=== PATIENT | female | born 1945 | race Caucasian/White ===

== ENCOUNTER → 2019-05-04 11:09 | Outpatient (CLI) | payer MEDICARE, OTHER, SELFPAY ==
--- NOTE | ~2019-05-04 | DEXA_ITS ---
Bone Density Report Name: Yessenia Chaidez Age: 73 Sex: Female Ethnicity: White Date of : 1945 Indication: osteopenia; height loss; Referring Provider: Nirmala Soto Study: Bone densitometry was performed. Exam Date: May 04, 2019 Accession number: [id number] Bone Density: Region BMD T-score Z-score Classification AP Spine (L1-L4) 0.759 -2.6 -0.4 Osteoporosis Femoral Neck (Left) 0.604 -2.2 -0.3 Osteopenia Total Hip (Left) 0.852 -0.7 0.8 Normal Femoral Neck (Right) 0.606 -2.2 -0.3 Osteopenia Total Hip (Right) 0.861 -0.7 0.9 Normal Total Hip Mean 0.857 -0.7 0.9 Normal World Health Organization criteria for BMD impression classify patients as: Normal (T-score at or above -1.0), Osteopenia (T-score between -1.0 and -2.5), or Osteoporosis (T-score at or below -2.5). 10-year Fracture Risk: FRAX not reported because: Some T-score for Spine Total or Hip Total or Femoral Neck at or below -2.5 Previous Exams: Region Exam Age BMD T-score BMD Change BMD Change Date g/cm2 vs Baseline vs Previous AP Spine(L1-L4) 05/04/2019 73 0.759 -2.6 -0.099 -0.099 12/23/2008 63 0.858 -1.7 Total Hip(Left) 05/04/2019 73 0.852 -0.7 -0.004 -0.004 12/23/2008 63 0.856 -0.7 Total Hip(Right) 05/04/2019 73 0.861 -0.7 -0.021 -0.021 12/23/2008 63 0.882 -0.5 *Denotes significance at 95% confidence level, LSC for AP Spine = 0.022 g/cm2, LSC for Total Hip = 0.027 g/cm2 Clinical Information Provided by Patient: Patient maximum height was 63 Menopause Age: 47 No regular weight bearing exercise Does not regularly consume dairy products Drinks caffeinated beverages Onset of menses at age 16 Number of children 4 Impression: The patient has osteoporosis, based on the Total Spine T-score. No significant bone loss was observed. Discussion: INCREASED RISK OF FRACTURE. BONE DENSITY IS UNDESIRABLY LOW AT ONE OR MORE SKELETAL SITES, CONSISTENT WITH POSTMENOPAUSAL OSTEOPOROSIS. This patient's lowest T-score meets the World Health Organization's (WHO) criteria for osteoporosis at one or more sites (T-score -2.5 or below). In untreated patients, the risk of osteoporotic fracture increases approximately two-fold for each 1.0 SD decrease in T-score. Low bone density is not the only risk factor for fracture; also consider factors such as patient's age, frailty or poor health, risk of falling, risk of injury, previous
== END ==
PROVIDERS: PCP Internal Medicine; Visit Provider Nurse Practitioner
DX: Z78.0 Asymptomatic menopausal state (principal); M81.0 Age-related osteoporosis without current pathological fracture; M85.852 Other specified disorders of bone density and structure, left thigh; M85.851 Other specified disorders of bone density and structure, right thigh
CPT/HCPCS: 77080

== ENCOUNTER 2021-01-01 12:40 | Outpatient (CLI) | payer MEDICARE, SELFPAY ==
--- NOTE | ~2021-01-01 | US_ITS ---
EXAMINATION: US abdomen limited EXAM DATE: 01/01/2021 13:10 INDICATION: R10.9 - Unspecified abdominal pain. TECHNIQUE: Multiple grayscale and Doppler images of the abdomen right upper quadrant were obtained (b y a technologist who performed the scan) and subsequently reviewed. Comparison is made to prior exami nation from 02/14/2015. FINDINGS: The pancreatic head and body are normal in appearance. The pancreatic tail is not visualized. Mildl y echogenic liver parenchyma, hepatic steatosis. There are no focal liver lesions identified. Ther e is no evidence of intrahepatic biliary duct dilation. Portal venous flow was seen in the hepatoped al, normal direction and has normal Doppler waveform. No right-sided hydronephrosis. Common bile duct measures 5 mm, which is normal. The gallbladder fossa is unremarkable. IMPRESSION: 1. Hepatic steatosis. Reviewed, dictated and finalized at location B. IMPRESSION: 1. Hepatic steatosis.
== END 2021-01-01 12:41 | disposition home or self-care (01) ==
LOC: ANHIMG 12:44
PROVIDERS: PCP Internal Medicine; Visit Provider Nurse Practitioner
DX: R10.9 Unspecified abdominal pain (principal); K76.0 Fatty (change of) liver, not elsewhere classified
CPT/HCPCS: 76705

== ENCOUNTER 2021-05-27 13:56 | Outpatient (CLI) | payer MEDICARE, SELFPAY ==
--- NOTE | ~2021-05-27 | DEXA_ITS ---
Bone Density Report Name: OSVALDO ARROYO Age: 75 Sex: Female Ethnicity: White Date of : 1945 Indication: osteopenia; height loss; Referring Provider: Nirmala Soto Study: Bone densitometry was performed. Exam Date: May 27, 2021 Accession number: [id number] Bone Density: Region BMD T-score Z-score Classification AP Spine (L1-L4) 0.787 -2.4 -0.1 Osteopenia Femoral Neck (Left) 0.609 -2.2 -0.2 Osteopenia Total Hip (Left) 0.870 -0.6 1.1 Normal Total Hip Bilateral Avg 0.857 -0.7 1.0 Normal Femoral Neck (Right) 0.601 -2.2 -0.2 Osteopenia Total Hip (Right) 0.843 -0.8 0.9 Normal World Health Organization criteria for BMD impression classify patients as: Normal (T-score at or above -1.0), Osteopenia (T-score between -1.0 and -2.5), or Osteoporosis (T-score at or below -2.5). 10-year Fracture Risk(1): Major Osteoporotic Fracture 12% Hip Fracture 2.8% Reported Risk Factors: [place] (), Neck BMD=0.601, BMI=37.2 (1) FRAX(R) Version 3.08. Fracture probability calculated for an untreated patient. Fracture probability may be lower if the patient has received treatment. Previous Exams: Region Exam Age BMD T-score BMD Change BMD Change Date g/cm2 vs Baseline vs Previous AP Spine(L1-L4) 05/27/2021 75 0.787 -2.4 -0.156(-16.5%) -0.055(-6.5%)# 06/26/2013 67 0.841 -1.9 -0.101(-10.7%) -0.101(-10.7%) 12/10/2004 58 0.943 -0.9 Total Hip(Left) 05/27/2021 75 0.870 -0.6 0.027(3.2%)# -0.013(-1.5%)# 06/26/2013 67 0.883 -0.5 0.040(4.8%)# 0.040(4.8%)# 12/10/2004 58 0.843 -0.8 Total Hip(Right) 05/27/2021 75 0.843 -0.8 -0.010(-1.2%)# -0.029(-3.3%)# 06/26/2013 67 0.872 -0.6 0.019(2.3%)# 0.019(2.3%)# 12/10/2004 58 0.853 -0.7 *Denotes significance at 95% confidence level, LSC for AP Spine = 0.022 g/cm2, LSC for Total Hip = 0.027 g/cm2 Clinical Information Provided by Patient: Has used the following medications: Vitamin D, Calcium Patient maximum height was 63 Menopause Age: 47 No regular weight bearing exercise Onset of menses at age 18 Number of children 4 Impression: The patient has low bone mass, based on the Total Spine T-score. The patient has an estimated ten-year risk of hip fracture of 2.8% and an estimated ten-year risk of major fracture of 12%, based on the WHO FRAX algorithm. No significant bone loss was observed. Discussion: BONE DENSITY IS LOW AT ONE OR MORE SKELETAL SITES. Th
== END 2021-05-27 13:57 | disposition home or self-care (01) ==
LOC: ANHIMG 13:58
PROVIDERS: PCP Internal Medicine; Visit Provider Nurse Practitioner
DX: Z78.0 Asymptomatic menopausal state (principal); M85.88 Other specified disorders of bone density and structure, other site; M85.851 Other specified disorders of bone density and structure, right thigh; M85.852 Other specified disorders of bone density and structure, left thigh
CPT/HCPCS: 77080

== ENCOUNTER → 2021-11-24 14:49 | Outpatient (CLI) | payer MEDICARE, SELFPAY ==
--- NOTE | ~2021-11-24 | XR_ITS ---
Corrected Report Charges moved to correct acct [id number] 11/27/2021 [facility] This report was recreated on 11/27/2021. Original report was signed by Bobby Hanks M.D. on 11/24/2021 14:07 CDT. XR UGIAC w barium swallow DATE: 11/24/2021 13:12 INDICATION: Epigastric abdominal pain, nausea TECHNIQUE: Air-contrast upper gastrointestinal series 1 minute fluoroscopy time 52.365 DAP 196 images COMPARISON: None FINDINGS: There is normal deglutition and esophageal peristalsis. No stricture, mucosal fold thickening, erosion or ulceration or intraluminal mass lesion of the esophagus is detected. There is a small sliding hiatal hernia. There is spontaneous gastroesophageal reflux into the upper thoracic region. There are 2 contiguous ulcers with surrounding edema and radiating mucosal folds at the apex of the duodenal bulb. There is a very small diverticulum of the proximal second part of the duodenum. Surgical clips at the gallbladder fossa consistent with prior cholecystectomy. IMPRESSION: Small apical duodenal ulcers Small sliding hiatal hernia with spontaneous gastroesophageal reflux into the upper thorax Reviewed, dictated and finalized at Location A. Reviewed, dictated and finalized at location B. JASPER
== END ==
PROVIDERS: PCP Internal Medicine; Visit Provider Internal Medicine
DX: R11.0 Nausea (principal); R10.13 Epigastric pain; K44.9 Diaphragmatic hernia without obstruction or gangrene
CPT/HCPCS: 74246

== ENCOUNTER 2022-02-04 11:51 | Day surgery (SDC) | payer MEDICARE, SELFPAY ==
[2022-01-21 13:47] VITALS: BMI 34.3
--- NOTE | 2022-01-21 14:09 | PC.NURSE ---
PT STATES SHE IS NOT DIABETIC, SHE TAKES OZEMPIC FOR WEIGHT LOSS
[2022-02-04 12:15] VITALS: BP 125/82; PULSE 84; RESP 16; TEMP 36.8; O2SAT 98
[2022-02-04 12:22] VITALS: BMI 33.5
[2022-02-04] MEDS: LACTATED RINGERS 1,000 ML 150 ML IV CONT (12:53)
--- NOTE | 2022-02-04 13:18 | PM.HPGS ---
History of Present Illness History of Present Illness Consent: Risks, benefits, and alternatives have been discussed and questions answered. Patient agrees to proceed with procedure. Chief complaint: Nausea, Hiatal Hernia and Gerd Narrative: Yessenia Chaidez is a 76 year old female Presents for EGD. Patient has a history of substernal burning over the last year associated with nausea. Patient initially treated with Nexium 20mg p.o. daily. Her symptoms have persisted for this reason an upper GI was performed which revealed duodenal edema suggestive of several contiguous duodenal ulcers and a sliding hiatal hernia. In November patient's Nexium was increased to40mg p.o. b.i.d.. Over last 2 months however her substernal burning and nausea has persisted. Patient presents today for EGD to assess more thoroughly. Patient denies any weight loss or bleeding. Family history is noncontributory. Review of Systems Review of Systems: Review of systems noncontributory. COUNTS INCLUDE 234 BEDS AT THE [facility] Past Medical History Medical History (Updated 02/04/22 @ 13:20 by Diaz Howard MD) Weight gain Family History Family History Father Hypertension Family history of coronary artery disease Mother Hypertension Family history of coronary artery disease Family history of Alzheimer's disease Sibling Hypertension Family history of diabetes mellitus in first degree relative Patient's sister is Acute myocardial infarction Family history of cardiovascular disease Family history of heart disease in male family member before age 55 Social History Social History (Updated 01/13/22 @ 13:54 by Kamryn Barahona CMA) Smoking packs per day: 2 Smoking cigarettes per day: 40.0 Years smoked: 15 Smoking pack-years: 30.00 Smoking status: Former smoker Tobacco type: cigarettes Second hand tobacco smoke exposure: No Smoking end date: 03/07/93 Alcohol intake: current Drinks per week: 3 Alcohol use details: 3 MARGARITAS A WEEK Substance use: never Substance use type: does not use Lack of Transportation: No Lack of Food: Never True Current Housing: I Have Housing Concerned About Future Housing: No Difficulty Paying Gas/Electric Bills: No Difficulty Paying for Meds: No Currently Unemployed: No Education: High School Diploma/GED Difficulty w/ Childcare or Family Care: No Living arrangements: with family Spiritual care concerns: No Meds Home Medications and Allergies Home Medications Medication Instructions Recorded Confirmed Type melatonin 3 mg capsule 3 mg PO QHS 10/24/20 02/04/22 History lisinopril 10 mg tablet See Rx Instructions .Route 08/07/21 02/04/22 Rx .COMPLEX #90 tabs verapamil 240 mg tablet,extended See Rx Instructions .Route 09/11/21 01/21/22 Rx release .COMPLEX #90 ea terbinafine HCl 250 mg tablet 250 mg PO DAILY #30 tabs 11/12/21 02/04/22 Rx esomeprazole magnesium 40 mg See Rx Instructions .Route 11/26/21 02/04/22 Rx capsule,delayed release .COMPLEX #90 ea alprazolam 0.5 mg tablet 0.5 mg PO DAILY #30 tabs 12/15/21 02/04/22 Rx duloxetine 60 mg capsule,delayed See Rx Instructions .Route 12/22/21 02/04/22 Rx release .COMPLEX #90 ea rosuvastatin 40 mg tablet See Rx Instructions .Route 12/22/21 02/04/22 Rx .COMPLEX #90 ea tramadol 50 mg tablet 50 mg PO Q8H PRN pain #90 tabs 12/22/21 01/21/22 Rx semaglutide 1 mg/dose (4 mg/3 mL) 1 mg (0.75 mL) subcut WEEKLY #3 mL 01/13/22 02/04/22 Rx subcutaneous pen injector Allergies Allergy/AdvReac Type Severity Reaction Status Date / Time ciprofloxacin Allergy Mild pt does Verified 02/04/22 12:17 not remember codeine Allergy Mild Rash Verified 02/04/22 12:17 inositol Allergy Mild Rash Verified 02/04/22 12:17 niacin Allergy Mild Rash Verified 02/04/22 12:17 niacinamide Allergy Mild Rash Verified 02/04/22 12:17 Penicillins Allergy Mild Itching Verified
--- NOTE | 2022-02-04 13:38 | WPDANESEPPF ---
Anes - Initial Pre Proc Eval Procedure: Operation Date: 02/04/22 13:30 Proposed Procedures p Esophagogastroduodenoscopy - Diaz Howard MD Date/Time: 02/04/22 13:38 Surgeon: Diaz Howard MD Pre Op Diagnosis: Nausea, Hiatal Hernia and Gerd Patient Data Age: 76 Gender: F Height: 1.6 m Weight: 86 kg Last Vital Signs Temp 36.8 C 02/04/22 12:15 Pulse 84 02/04/22 12:15 Resp 16 02/04/22 12:15 BP 125/82 02/04/22 12:15 Pulse Ox 98 02/04/22 12:15 O2 Del Method Room Air 02/04/22 12:15 Allergies Allergy/AdvReac Type Severity Reaction Status Date / Time ciprofloxacin Allergy Mild pt does Verified 02/04/22 12:17 not remember codeine Allergy Mild Rash Verified 02/04/22 12:17 inositol Allergy Mild Rash Verified 02/04/22 12:17 niacin Allergy Mild Rash Verified 02/04/22 12:17 niacinamide Allergy Mild Rash Verified 02/04/22 12:17 Penicillins Allergy Mild Itching Verified 02/04/22 12:17 Sulfa (Sulfonamide Allergy Mild pt does Verified 02/04/22 12:17 Antibiotics) not remember Home Medications Medication Instructions Recorded Confirmed Type melatonin 3 mg capsule 3 mg PO QHS 10/24/20 02/04/22 History lisinopril 10 mg tablet See Rx Instructions .Route 08/07/21 02/04/22 Rx .COMPLEX #90 tabs verapamil 240 mg tablet,extended See Rx Instructions .Route 09/11/21 01/21/22 Rx release .COMPLEX #90 ea terbinafine HCl 250 mg tablet 250 mg PO DAILY #30 tabs 11/12/21 02/04/22 Rx esomeprazole magnesium 40 mg See Rx Instructions .Route 11/26/21 02/04/22 Rx capsule,delayed release .COMPLEX #90 ea alprazolam 0.5 mg tablet 0.5 mg PO DAILY #30 tabs 12/15/21 02/04/22 Rx duloxetine 60 mg capsule,delayed See Rx Instructions .Route 12/22/21 02/04/22 Rx release .COMPLEX #90 ea rosuvastatin 40 mg tablet See Rx Instructions .Route 12/22/21 02/04/22 Rx .COMPLEX #90 ea tramadol 50 mg tablet 50 mg PO Q8H PRN pain #90 tabs 12/22/21 01/21/22 Rx semaglutide 1 mg/dose (4 mg/3 mL) 1 mg (0.75 mL) subcut WEEKLY #3 mL 01/13/22 02/04/22 Rx subcutaneous pen injector Patient hx anesthesia problems: none Family hx anesthesia problems: none Results Review: All pre-operative results and documents have been reviewed as part of the pre-operative evaluation. [facility] Past Medical History Medical History Anxiety Chronic GERD Essential (primary) hypertension Major depressive disorder, recurrent episode, unspecified Mixed hyperlipidemia Weight gain Family History Family History Father Hypertension Family history of coronary artery disease Mother Hypertension Family history of coronary artery disease Family history of Alzheimer's disease Sibling Hypertension Family history of diabetes mellitus in first degree relative Patient's sister is Acute myocardial infarction Family history of cardiovascular disease Family history of heart disease in male family member before age 55 Social History Social History Smoking packs per day: 2 Smoking cigarettes per day: 40.0 Years smoked: 15 Smoking pack-years: 30.00 Smoking status: Former smoker Tobacco type: cigarettes Second hand tobacco smoke exposure: No Smoking end date: 03/07/93 Alcohol intake: current Drinks per week: 3 Alcohol use details: 3 MARGARITAS A WEEK Substance use: never Substance use type: does not use Lack of Transportation: No Lack of Food: Never True Current Housing: I Have Housing Concerned About Future Housing: No Difficulty Paying Gas/Electric Bills: No Difficulty Paying for Meds: No Currently Unemployed: No Education: High School Diploma/GED Difficulty w/ Childcare or Family Care: No Living arrangements: with family Spiritual care concerns: No Anes - Eval Final PreProcedure Day of P
[2022-02-04 14:06] VITALS: BP 143/80; PULSE 102; RESP 16; O2SAT 93
[2022-02-04 14:16] VITALS: BP 142/75; PULSE 96; RESP 16; O2SAT 94
[2022-02-04 14:26] VITALS: BP 138/80; PULSE 84; RESP 16; O2SAT 97
--- NOTE | 2022-02-04 14:26 | WPDANESPN ---
Anes - Prog Note Post-Op Date/Time: 02/04/22 14:26 Cardiovascular status: normal Respiratory status: normal Airway patency: baseline Mental status: baseline Post-Op hydration status: normal Vital Signs: Last Vital Signs Temp 36.8 C 02/04/22 12:15 Pulse 96 02/04/22 14:16 Resp 16 02/04/22 14:16 BP 142/75 H 02/04/22 14:16 Pulse Ox 94 02/04/22 14:16 O2 Del Method Room Air 02/04/22 14:16 Pain Score (VAS): 0 I/O: Intake & Output 02/03/22 02/04/22 02/04/22 23:59 07:59 15:59 Intake Total 400 Balance 400 Patient Feedback: Patient satisfied with anesthetic care.
--- NOTE | 2022-02-04 14:27 | SUR.PHASEII ---
DR PINA SPEAKING WITH PT AND FAMILY MEMBER JAVIER, IN [place].
--- NOTE | 2022-02-04 15:05 | SUR.PHASEII ---
1445; REVIEWED DISCHARGE INSTRUCTIONS WITH PT AND FAMILY. CALLED [facility] [place] TO CONFIRM NEW PRESCRIPTION OF REGLAN FROM DR PINA. IT IS READY FOR EXECUTIVE TALENT ACQUISITION CONSULTANT.
== END 2022-02-04 15:00 | disposition home or self-care (01) ==
PROVIDERS: PCP Internal Medicine; Visit Provider Internal Medicine Gastroenterology
PROC: 0DJ08ZZ Inspection of Upper Intestinal Tract, Via Natural or Artificial Opening Endoscopic (ICD-10-PCS; CPT 43235; principal; 2022-02-04 13:30)
DX: R11.0 Nausea (principal)
CPT/HCPCS: 43235

== ENCOUNTER 2022-02-23 09:11 | Outpatient (CLI) | payer MEDICARE, SELFPAY ==
--- NOTE | ~2022-02-23 | NM_ITS ---
EXAM: NM gastric emptying study DATE: 02/23/2022 14:21 INDICATION: Gastric basilar on endoscopy. TECHNIQUE: A gastric emptying study was performed using the methodology of Abimbola CASTELLON, et al. J Nucl Med 2007; 48:568-572. The patient was given a meal consisting of 2 scrambled eggs labeled with 1.021 mCi Tc-99m sulfur colloid, 2 slices of toast, two packages of jam, and approximately 120 mL of water . Simultaneous anterior and posterior 1-min images of the abdomen were obtained with the patient supi ne at multiple time points over a total period of 4 hours. The geometric mean of anterior and posteri or views was determined, and the percentage retention was calculated for each time point. COMPARISON: None. FINDINGS: Gastric retention of the radiotracer-labeled meal was 58%, 38%, and 17% at the 1-hour, 2-hour, and 4- hour time points, respectively. With this technique, apparent rapid gastric emptying is suggested by <30% gastric retention at 1 hour. Delayed gastric emptying is defined by gastric retention of >90% at 1 hour, >60% retention at 2 hours, or >10% retention at 4 hours. IMPRESSION: 1. Delayed gastric emptying. Reviewed, dictated and finalized at location L. TOR TECHNICIAN
== END 2022-02-23 09:12 | disposition home or self-care (01) ==
PROVIDERS: PCP Internal Medicine; Visit Provider Internal Medicine Gastroenterology
DX: T18.9XXA Foreign body of alimentary tract, part unspecified, initial encounter (principal); K30 Functional dyspepsia
CPT/HCPCS: 78264; A9541

== ENCOUNTER 2022-04-14 12:35 | Outpatient (CLI) | payer MEDICARE, SELFPAY ==
[2022-04-14 19:40] LABS: Kit Draw Collected
== END 2022-04-14 12:36 | disposition home or self-care (01) ==
LOC: ANHGOSHLAB 12:36
PROVIDERS: PCP Family Medicine; Visit Provider Family Medicine
DX: E78.5 Hyperlipidemia, unspecified (principal); R73.03 Prediabetes; E66.9 Obesity, unspecified
CPT/HCPCS: 36415

== ENCOUNTER 2022-11-15 12:44 | Outpatient (CLI) | payer MEDICARE, SELFPAY ==
[2022-11-15 19:35] LABS: Alanine Aminotransferase 11 U/L (6-35); Albumin Level 3.7 g/dL (3.5-5.1); Alkaline Phosphatase 82 U/L (38-126); Anion Gap 7 mmol/L (8-16); Aspartate Amino Transferase 25 U/L (14-36); Bilirubin,Total 0.5 mg/dL (0.2-1.3); Blood Urea Nitrogen 15 mg/dL (7-17); Carbon Dioxide 27 mmol/L (22-30); Chloride 103 mmol/L (98-107); Cholesterol 154 mg/dL (0-200); Estimated Glomerular Filt Rate > 60; Glucose 86 mg/dL (65-110); HDL Direct 43 mg/dL; Potassium 4.4 mmol/L (3.4-5.0); Sodium 137 mmol/L (137-145); Triglycerides 151 mg/dL (<150)
[2022-11-15 19:46] LABS: LDL Cholesterol Direct 77 mg/dL
[2022-11-15 20:35] LABS: Hematocrit 44.8 % (37.0-47.0); Hemoglobin 14.1 g/dL (12.0-15.0); Mean Corpuscular HGB Conc 31.5 g/dl (32-36); Mean Corpuscular Hemoglobin 29.4 pg (26-34); Mean Corpuscular Volume 93.3 fl (80-100); Mean Platelet Volume 10.6 fl (7.4-10.4); Platelet Count Result 260 k/mm3 (150-375); Red Cell Distribution Width 11.9 % (11.5-14.5)
[2022-11-15 20:36] LABS: Hemoglobin A1C 5.4 % (<5.7)
== END 2022-11-15 12:45 | disposition home or self-care (01) ==
LOC: ANHGOSHLAB 12:45
PROVIDERS: PCP Family Medicine; Visit Provider Family Medicine
DX: E78.5 Hyperlipidemia, unspecified (principal); R73.03 Prediabetes; E66.9 Obesity, unspecified; I10 Essential (primary) hypertension
CPT/HCPCS: 36415; 80053; 80061; 83036; 84443; 85027

== ENCOUNTER 2023-02-09 12:44 | Outpatient (CLI) | payer MEDICARE, SELFPAY ==
--- NOTE | ~2023-02-09 | US_ITS ---
US abdomen complete EXAMINATION: US Abdomen Complete INDICATION: Bloating. PROCEDURE: Realtime High Resolution abdomen ultrasound. COMPARISON: No prior studies for comparison FINDINGS: Gallbladder is surgically absent. Common bile duct measures 4.5 mm. Liver echotexture is increased, consistent with fatty infiltration.. Pancreas within normal limits. Pancreatic tail is obscured by bowel gas. Spleen is unremarkeable. Renal echotexture is within norm al limits bilaterally without hydronephrosis, contour deforming mass or renal stone. Right kidney sophie sures 9.3 cm. Left kidney measures 9.1 cm. There is a small hyperechoic mass in the right kidney justice uring 1.6 x 0.9 x 0.8 cm, consistent with benign angiomyolipoma. Visualized aspects of the aorta and IVC are within normal limits. Portal vein is patent. No sonograph ic Herbert's sign indicated by the technologist. IMPRESSION: 1: Hyperechoic 1.6 cm right renal mass, consistent with benign angiomyolipoma. Reviewed, dictated and finalized at location L. F WRITER
== END 2023-02-09 12:45 | disposition home or self-care (01) ==
LOC: CHSIMG 12:47
PROVIDERS: PCP Family Medicine; Visit Provider Nurse Practitioner Family
DX: R14.0 Abdominal distension (gaseous) (principal); N28.89 Other specified disorders of kidney and ureter
CPT/HCPCS: 76700

== ENCOUNTER 2023-03-21 11:19 | Outpatient (CLI) | payer MEDICARE, SELFPAY ==
[2023-03-21 19:17] LABS: Hematocrit 49.1 % (37.0-47.0); Hemoglobin 15.2 g/dL (12.0-15.0); Mean Corpuscular Hemoglobin 28.8 pg (26-34); Mean Platelet Volume 10.5 fl (7.4-10.4); Platelet Count Result 281 k/mm3 (150-375); Red Blood Count 5.28 M/mm3 (4.2-5.4); Red Cell Distribution Width 12.3 % (11.5-14.5); White Blood Count 9.7 K/mm3 (4.5-10.0)
[2023-03-21 19:18] LABS: Alanine Aminotransferase 14 U/L (6-35); Albumin Level 3.8 g/dL (3.5-5.1); Alkaline Phosphatase 109 U/L (38-126); Anion Gap 9 mmol/L (8-16); Aspartate Amino Transferase 29 U/L (14-36); Bilirubin,Total 0.8 mg/dL (0.2-1.3); Blood Urea Nitrogen 11 mg/dL (7-17); Calcium 9.2 mg/dL (8.4-10.2); Carbon Dioxide 26 mmol/L (22-30); Chloride 103 mmol/L (98-107); Cholesterol 185 mg/dL (0-200); Estimated Glomerular Filt Rate > 60; Glucose 95 mg/dL (65-110); HDL Direct 55 mg/dL; Potassium 4.1 mmol/L (3.4-5.0); Sodium 138 mmol/L (137-145); Triglycerides 209 mg/dL (<150)
[2023-03-21 19:29] LABS: LDL Cholesterol Direct 96 mg/dL
[2023-03-21 19:42] LABS: Hemoglobin A1C 5.9 % (<5.7)
== END 2023-03-21 11:20 | disposition home or self-care (01) ==
PROVIDERS: PCP Family Medicine; Visit Provider Family Medicine
DX: R73.03 Prediabetes (principal); E78.5 Hyperlipidemia, unspecified; E66.9 Obesity, unspecified; I10 Essential (primary) hypertension
CPT/HCPCS: 36415; 80053; 80061; 83036; 84443; 85027

== ENCOUNTER 2023-07-11 09:44 | Outpatient (CLI) | payer MEDICARE, SELFPAY ==
[2023-07-11 19:39] LABS: Hematocrit 48.2 % (37.0-47.0); Hemoglobin 14.8 g/dL (12.0-15.0); Mean Corpuscular HGB Conc 30.7 g/dl (32-36); Mean Corpuscular Hemoglobin 28.8 pg (26-34); Platelet Count Result 278 k/mm3 (150-375); Red Blood Count 5.13 M/mm3 (4.2-5.4); Red Cell Distribution Width 12.4 % (11.5-14.5); White Blood Count 8.7 K/mm3 (4.5-10.0)
[2023-07-11 19:52] LABS: Alanine Aminotransferase 15 U/L (6-35); Alkaline Phosphatase 100 U/L (38-126); Anion Gap 5 mmol/L (4-12); Aspartate Amino Transferase 31 U/L (14-36); Bilirubin,Total 0.6 mg/dL (0.2-1.3); Blood Urea Nitrogen 11 mg/dL (7-17); Calcium 9.2 mg/dL (8.4-10.2); Carbon Dioxide 29 mmol/L (22-30); Chloride 105 mmol/L (98-107); Cholesterol 171 mg/dL (0-200); Estimated Glomerular Filt Rate > 60; Glucose 92 mg/dL (65-110); HDL Direct 53 mg/dL; Potassium 4.4 mmol/L (3.4-5.0); Sodium 139 mmol/L (137-145); Triglycerides 214 mg/dL (<150)
[2023-07-11 20:02] LABS: LDL Cholesterol Direct 93 mg/dL
[2023-07-11 21:12] LABS: Hemoglobin A1C 5.6 % (<5.7)
== END 2023-07-11 09:45 | disposition home or self-care (01) ==
LOC: ANHGOSHLAB 09:45
PROVIDERS: PCP Family Medicine; Visit Provider Family Medicine
DX: E66.9 Obesity, unspecified (principal); E78.5 Hyperlipidemia, unspecified; I10 Essential (primary) hypertension; R73.03 Prediabetes; R94.5 Abnormal results of liver function studies
CPT/HCPCS: 36415; 80053; 80061; 83036; 84443; 85027

== ENCOUNTER 2023-11-09 13:07 | Outpatient (CLI) | payer MEDICARE, SELFPAY ==
[2023-11-09 19:29] LABS: Hematocrit 46.1 % (37.0-47.0); Hemoglobin 14.5 g/dL (12.0-15.0); Mean Corpuscular HGB Conc 31.5 g/dl (32-36); Mean Corpuscular Hemoglobin 29.1 pg (26-34); Mean Corpuscular Volume 92.4 fl (80-100); Platelet Count Result 271 k/mm3 (150-375); Red Blood Count 4.99 M/mm3 (4.2-5.4); Red Cell Distribution Width 12.6 % (11.5-14.5); White Blood Count 8.9 K/mm3 (4.5-10.0)
[2023-11-09 21:30] LABS: Alanine Aminotransferase 13 U/L (6-35); Albumin Level 3.9 g/dL (3.5-5.1); Alkaline Phosphatase 102 U/L (38-126); Anion Gap 7 mmol/L (4-12); Aspartate Amino Transferase 29 U/L (14-36); Bilirubin,Total 0.6 mg/dL (0.2-1.3); Blood Urea Nitrogen 13 mg/dL (7-17); Calcium 9.2 mg/dL (8.4-10.2); Carbon Dioxide 29 mmol/L (22-30); Chloride 103 mmol/L (98-107); Cholesterol 190 mg/dL (0-200); Estimated Glomerular Filt Rate > 60; Glucose 92 mg/dL (65-110); HDL Direct 54 mg/dL; Potassium 4.8 mmol/L (3.4-5.0); Sodium 139 mmol/L (137-145); Triglycerides 169 mg/dL (<150)
[2023-11-09 21:42] LABS: LDL Cholesterol Direct 107 mg/dL
[2023-11-09 22:21] LABS: Vitamin D 25 Hydroxy 17.2 ng/mL
[2023-11-09 22:24] LABS: Hemoglobin A1C 5.9 % (<5.7)
== END 2023-11-09 13:08 | disposition home or self-care (01) ==
LOC: ANHGOSHLAB 13:08
PROVIDERS: PCP Family Medicine; Visit Provider Nurse Practitioner
DX: E55.9 Vitamin D deficiency, unspecified (principal); Z00.00 Encounter for general adult medical examination without abnormal findings; E66.9 Obesity, unspecified; R73.03 Prediabetes
CPT/HCPCS: 36415; 80053; 80061; 82306; 83036; 84443; 85027

== ENCOUNTER 2024-02-23 10:40 | Outpatient (CLI) | payer MEDICARE, SELFPAY ==
[2024-02-23 13:09] LABS: Alanine Aminotransferase 11 U/L (6-35); Albumin Level 4.2 g/dL (3.5-5.1); Alkaline Phosphatase 118 U/L (38-126); Anion Gap 4 mmol/L (4-12); Aspartate Amino Transferase 29 U/L (14-36); Bilirubin,Total 0.8 mg/dL (0.2-1.3); Blood Urea Nitrogen 10 mg/dL (7-17); Calcium 9.5 mg/dL (8.4-10.2); Carbon Dioxide 29 mmol/L (22-30); Chloride 106 mmol/L (98-107); Cholesterol 184 mg/dL (0-200); Estimated Glomerular Filt Rate > 60; Glucose 102 mg/dL (65-110); HDL Direct 55 mg/dL; Potassium 4.9 mmol/L (3.4-5.0); Sodium 139 mmol/L (137-145); Triglycerides 183 mg/dL (<150)
[2024-02-23 13:20] LABS: LDL Cholesterol Direct 87 mg/dL
[2024-02-23 13:44] LABS: Hepatitis C Virus Antibody Negative (Negative)
== END 2024-02-23 10:41 | disposition home or self-care (01) ==
LOC: ANHGOSHLAB 10:41
PROVIDERS: PCP Nurse Practitioner; Visit Provider Nurse Practitioner
DX: R73.03 Prediabetes (principal); E78.5 Hyperlipidemia, unspecified; Z11.59 Encounter for screening for other viral diseases; M85.88 Other specified disorders of bone density and structure, other site; R91.8 Other nonspecific abnormal finding of lung field
CPT/HCPCS: 36415; 80053; 80061; 83036; 86803

== ENCOUNTER 2024-02-23 10:53 | Outpatient (CLI) | payer MEDICARE, SELFPAY ==
--- NOTE | ~2024-02-23 | CT_ITS ---
Non-contrast CT scan of the Abdomen and Pelvis Clinical indication: Back pain, other specified disorders kidney and ureter Technique: 2.5 mm axial scans were obtained through the abdomen and pelvis without intravenous or or al contrast. Dose reduction technique was used on this scan by utilizing automated exposure control a nd iterative reconstruction technique. The dose-length product (DLP) was 1019.98 mGy-cm. Findings: Images through the lung bases reveal 4 mm left lower lobe pulmonary nodule (axial image 7) . Probable minimal chronic interstitial changes of the lung bases.. There is no evidence of renal or ureteral calculi. The kidneys and the ureters are nondilated. 7 mm p robable hyperdense right renal cyst present. The liver, spleen, pancreas, and adrenals appear normal. Cholecystectomy clips are present. There are atherosclerotic calcifications of the aorta. . There is no evidence of bowel obstruction. Small fat-containing umbilical hernia noted. Images through the pelvis were performed. There is no evidence of ascites or lymphadenopathy. Urinary bladder unremarkable. No pelvic mass. Impression: 7 mm probable hyperdense right renal cyst. This could be further confirmed with pre and postcontrast MR as indicated. 4 mm left lower lobe pulmonary nodule. According to Fleischner Society criteria, for a low-risk patie nt, no further follow-up required. For a high-risk patient, consider 12 month follow-up CT. Reviewed, dictated and finalized at [facility]. L WORD PROCESSOR Impression: 7 mm probable hyperdense right renal cyst. This could be further confirmed with pre and postcontrast MR as indicated. 4 mm left lower lobe pulmonary nodule. According to Fleischner Society criteria , for a low-risk patient, no further follow-up required. For a high-risk patien t, consider 12 month follow-up CT.
== END 2024-02-23 10:54 | disposition home or self-care (01) ==
LOC: GOSHIMG 10:53
PROVIDERS: PCP Nurse Practitioner; Visit Provider Nurse Practitioner
DX: N28.89 Other specified disorders of kidney and ureter (principal)
CPT/HCPCS: 74176

== ENCOUNTER 2024-03-21 14:12 | Outpatient (CLI) | payer MEDICARE, SELFPAY ==
--- NOTE | ~2024-03-21 | XR_ITS ---
XR hip BI wo pelvis 03/21/2024 14:41 Indication: Bilateral hip pain Procedure: 2 views each hip Comparison: Findings: Mild bilateral osteoarthritis of the hips. No fracture, subluxation or dislocation. No soft tissue abnormality. No foreign bodies. Impression: 1: Mild osteoarthritis of the hips. Reviewed, dictated and finalized at location A. R SIGNAL PROCESSING ENGINEER Impression: 1: Mild osteoarthritis of the hips.
--- NOTE | ~2024-03-21 | XR_ITS ---
XR lumbar spine 2-3V 03/21/2024 14:41 Indication: Low back pain Procedure: 4 views lumbar spine Comparison: 06/10/2007 Findings: Mild dextrocurvature. Osteopenia. Vertebral body heights are maintained. There is disc narr owing at L5-S1 and to a lesser degree L4-5. There is facet hypertrophy at L4-5 and L5-S1. There are c holecystectomy clips. Pedicles intact. Impression: 1: Moderate lumbar spondylosis Reviewed, dictated and finalized at location A. UP OPERATOR Impression: 1: Moderate lumbar spondylosis
== END 2024-03-21 14:13 | disposition home or self-care (01) ==
LOC: GOSHIMG 14:14
PROVIDERS: PCP Nurse Practitioner; Visit Provider Nurse Practitioner
DX: M47.896 Other spondylosis, lumbar region (principal); M16.0 Bilateral primary osteoarthritis of hip
CPT/HCPCS: 72100; 73521

== ENCOUNTER 2024-06-20 00:28 | Emergency (ER) | payer MEDICARE, SELFPAY ==
--- NOTE | ~2024-06-20 | XR_ITS ---
Portable chest x-ray Comparison: 09/29/2006 Clinical History: Infection Findings: Lungs are clear, without focal consolidation or pleural effusion. Cardiomediastinal silho uette is stable. Bones and soft tissues are unremarkable. Impression: Clear lungs. Reviewed, dictated and finalized at location . Impression: Clear lungs.
--- NOTE | ~2024-06-20 | CT_ITS ---
Non-contrast Head CT History: Headache Technique: Axial non-contrast imaging of the brain was performed. Dose reduction technique was used on this scan by utilizing automated exposure control and iterative reconstruction technique. The dose -length product (DLP) was 605.33 mGy-cm. Findings: There is no evidence of intracranial hemorrhage, mass lesion, or acute infarct. Chronic la cunar infarct versus dilated perivascular space noted in the right basal ganglia region. The ventric les and subarachnoid spaces are normal in size. The calvarium appears normal. The visualized parana gin sinuses and mastoid air cells are clear. Impression: No acute abnormality seen. Chronic lacunar infarct versus dilated perivascular space in the right basal ganglia. Reviewed, dictated and finalized at location . Impression: No acute abnormality seen. Chronic lacunar infarct versus dilated perivascular space in the right basal ga nglia.
--- OUTSIDE RECORDS SUMMARY | 2024-06-20 00:30 | XMS_ITS | Clinical Summary ---
Author Organization [facility] Address [address] [place] [address] Care Team Providers Care Hot Bread Baker Name Role Phone Frantz Grissom MD Primary Care Provider [phone] Source Comments [facility] [employer],non-owned Affiliates and Associated Physician Practices is amultiple site organization consisting of ambulatory clinics and hospital sitesin [place], [place], [place] and [place]. This disclosure is being madepursuant to the Care Everywhere program and may not contain all information available regarding this patient. Last updated 17.[facility] [employer] Social History Tobacco Use Types Packs/Day Years Used Date Smoking Tobacco: Never Assessed Comments Unknown Sex and Gender Information Value Date Recorded Sex Assigned at Not on file Legal Sex Female 1:04 PM CDT Gender Identity Not on file Sexual Orientation Not on file Plan of Treatment Health Maintenance Due Date Last Done Comments BONE DENSITY TESTING 1945 HEPATITIS C SCREENING 12/12/1965 DTAP/TDAP/TD VACCINES (1 - Tdap) 12/16/1966 PNEUMOCOCCAL VACCINE 50+ (1 of 1 - PCV) 12/16/1997 ZOSTER VACCINE (1 of 2) 12/16/1997 Respiratory Syncytial Virus (RSV) Vaccine Pt: or over 60 yrs (1 - 1-dose 75+ series) 12/16/2022 COVID-19 VACCINE ( - 2023-2 5 season) 2023 DEPRESSION SCREENING 03/07/2024 MEDICARE AWV CALENDAR YEAR 2024 INFLUENZA VACCINE (Season Ended) 2024 HEPATITIS B VACCINE Aged Out No longe r eligible based on patient's age to complete this topic HIB VACCINE Aged Out No longer eligi ble based on patient's age to complete this topic HPV VACCINE Aged Out No longer eligi ble based on patient's age to complete this topic MENINGOCOCCAL (Group B) VACC INE SHARED DECISION-MAKING Aged Out No longer eligibl e based on patient's age to complete this topic MENINGOCOCCAL GROUPS A/C/Y/W VACCINE Aged Out No longer eligible b ased on patient's age to complete this topic Insurance MEDICARE MEDICARE MEDICARE UHC MANAGED MEDICARE ADV Care Teams Hot Bread Baker Relationship Specialty Start Date End Date Frantz Grissom MD [address] [place] [address] PCP - General 10/30/20
--- OUTSIDE RECORDS SUMMARY | 2024-06-20 00:30 | XMS_ITS | Encounter Summary ---
Author Organization [facility] Address [address] [place] [address] Care Team Providers Care Beading Installer Name Role Phone Frantz Grissom MD Primary Care Provider [phone] Encounter Details Date Type Department Care Team (Late st Contact Info) Description 10/31/2020 Lab Requisition [facility] DermPath Lab [address] [place] [id number] Pan Sabillon Jr., MD [address] [facility] [address] [place] [address] Social History Tobacco Use Types Packs/Day Years Used Date Smoking Tobacco: Never Assessed Comments Unknown Sex and Gender Information Value Date Recorded Sex Assigned at Not on file Legal Sex Female 1:04 PM CDT Gender Identity Not on file Sexual Orientation Not on file documented as of this encounter Plan of Treatment Not on file documented as of this encounter Procedures Procedure Name Priority Date/Time Associated Diagnosis Comments DERMATOPATHOLOGY Routine 10/29/2020 3:33 AM CDT documented in this encounter Results * DERMATOPATHOLOGY (10/29/2020 3:33 AM CDT) Case Report Dermatopathology Report Case: [id number] Authorizing Provider: Pan Sabillon Jr., MD Collected: 10/29/2020 03:33 AM Ordering Location: [facility] Derm[facility] Lab Received: 10/31/2020 05:59 AM Pathologist: Rosalinda Rodriguez MD Specimen: Skin, left lateral superior chest 2:51 PM CDT DERMATOPATHOLOGY LABORATORY Final Diagnosis Specimen A. SKIN, left lateral superior chest: BENIGN VERRUCOUS KERATOSIS, INFLAMED (L82.1) 2:51 PM CDT DERMATOPATHOLOGY LABORATORY Clinical History Inflamed seborrheic keratosis vs verruca vulgaris vs squamous cell carcinoma. . 1 2:51 PM CDT DERMATOPATHOLOGY LABORATORY Gross Description Specimen A: Received is one formalin filled container labeled with the patient's name and designated left lateral superior chest. The specimen consists of a shave biopsy measuring [id number]. Jar 0. 1 2:51 PM CDT DERMATOPATHOLOGY LABORATORY Microscopic Description Specimen A. SKIN, left lateral superior chest: Sections show hyperkeratosis, papillomatosis, hypergranulosis, and acanthosis. Inflammatory cells are present within the dermis. These histological findings can be seen in a verruca vulgaris or a seborrheic keratosis. 2:51 PM CDT DERMATOPATHOLOGY LABORATORY Disclaimer An external and internal positive and negative controls are appropriate for the histochemical, immunohistochemical and immunofluorescence stain(s) in this case (if any), except where stated explicitly. The performance characteristics of the stain(s) cited in this report were developed and its performance characteristic determined by the Dermatopathology Laboratory at [facility], directed by Dr. Marychuy Rodriguez. These tests need not be, and therefore are not, approved by the [place] Food and Drug Administration. The tests are used for clinical purposes. Billing Codes Specimen Charges Stain Charges 88496 1 1 2:51 PM CDT DERMATOPATHOLOGY LABORATORY Embedded Images 1 2:51 PM CDT DERMATOPATHOLOGY LABORATORY Pathology/Cytolo gy TISSUE SPECIMEN FROM SKIN / Unknown 10/29/2020 3:33 AM CDT 10/31/2020 5:59 AM CDT us Pan Sabillon Jr., MD LAB - PATHOLOGY/CYTOLOG Y ORDERABLES Final Result DERMATOPATHOLOGY LABORATORY [facility] - Department of Dermatology [address], [address] [phone] documented in this encounter Visit Diagnoses Not on filedocumented in this encounter Care Teams Beading Installer Relationship Specialty Start Date End Date Frantz Grissom MD [address] [facility] [address] [place] [address] PCP - General 10/30/20 documented as of this encounter
--- OUTSIDE RECORDS SUMMARY | 2024-06-20 00:30 | XMS_ITS | Clinical Summary ---
Author Organization [facility] Address [address], [address] [address] Phone Care Team Providers Care Application Chemist Name Role Phone Frantz Grissom MD Primary Care Provider [phone] Diaz Wen DO Unavailable [phone] Immunizations Immunization Administration Dates Next Due Covid-19, Mrna, Lnp-s, Pf, 30 Mcg/0.3 Ml Dose (P fizer) 05/29/2020,05/01/2020 Social History Tobacco Use Types Packs/Day Years Used Date Smoking Tobacco: Never Assessed Comments Unknown Sex and Gender Information Value Date Recorded Sex Assigned at Not on file Legal Sex Female 11:32 PM CDT Gender Identity Not on file Sexual Orientation Not on file Plan of Treatment Health Maintenance Due Date Last Done Comments DEXA Bone Density 1945 Hepatitis C Virus (HCV) Screening 1945 TdaP Immunization 1945 Colonoscopy 12/16/1992 Colorectal Cancer Screening 12/16/1992 Cologuard 12/16/1997 Immunochemical Fecal Occult Blood 12/16/1997 Zoster Immunization (1 of 2) 12/16/1997 Respiratory Syncytial Virus (RSV) Immunization (Adult) (1 - 1-dose 75+ series) 12/16/2022 Influenza Immunization (#1) 2023 092 03/2019, 03/21/2019, 11/17/2017, Additional history exists SARS-COV-2 Immunization ( season) 2023 01/22/2021, 05/29/2020, 05/01/2020 Pneumococcal Immunization (50+ years) Completed 04/04/2017, 03/16/2016 Pneumococcal Immunization Combined Discontinued 04/04/2017, 03/16/2016 Hepatitis B Immunization Aged Out No longer eligible based on patient's age to complete this topic Meningococcal Immunization (ACWY) Aged Out No longer eligible based on patient's age to complete this topic Rotavirus Immunization Aged Out No lo nger eligible based on patient's age to complete this topic Insurance Member Subscriber Plan / Payer (Ef fective 2012-Present) Name:Osvaldo Chaidez Member ID:[id number] Relation to Subscriber:Self Name:OSVALDO CHAIDEZ Subscriber ID:[id number] Payer ID:[id number] Group ID:Not on file Type:Not on file Address: [facility] [address] [facility] [employer] [facility] [place] [address] [facility]LY [facility] Care Teams Application Chemist Relationship Specialty Start Date End Date Frantz Grissom MD [address] [place] [address] PCP - General Internal Medicine 03/13/15 Diaz Wen DO [address] [place] [address] Gastroenterology 03/13/15
[2024-06-20 00:41] VITALS: BP 151/94; PULSE 101; RESP 18; TEMP 36.6; O2SAT 98
[2024-06-20 01:07] LABS: Basophils Percent Auto 0.2 % (0.2-1.2); Eosinophils Percent Auto 0.1 % (0-4.4); Hematocrit 54.3 % (37.0-47.0); Hemoglobin 17.2 g/dL (12.0-15.0); Immature Granulocyte Absolute 0.11 K/mm3 (0.00-0.031); Immature Granulocyte Percent A 0.6 % (0-0.5); Lymphocytes Absolute Auto 1.56 K/mm3 (0.9-3.2); Lymphocytes Percent Auto 8.4 % (18.3-44.2); Mean Corpuscular HGB Conc 31.7 g/dl (32-36); Mean Corpuscular Hemoglobin 28.8 pg (26-34); Mean Platelet Volume 9.1 fl (7.4-10.4); Monocytes Absolute Auto 1.2 K/mm3 (0.1-0.6); Monocytes Percent Auto 6.5 % (2.6-8.5); Neutrophils Absolute Auto 15.7 K/mm3 (1.3-6.7); Neutrophils Percent Auto 84.2 % (45.5-73.1); Platelet Count Result 281 k/mm3 (150-375); Red Blood Count 5.97 M/mm3 (4.2-5.4); Red Cell Distribution Width 12.9 % (11.5-14.5); White Blood Count 18.6 K/mm3 (4.5-10.0)
[2024-06-20] MEDS: ACETAMINOPHEN 500 MG TABLET 1000 MG PO (01:09)
[2024-06-20] MEDS: METOCLOPRAMIDE HCL INJ 10 MG/2 ML VIAL IV PUSH (01:09)
[2024-06-20] MEDS: diphenhydrAMINE HCl INJ 50 MG/ML VIAL 25 MG IV PUSH (01:09)
[2024-06-20] MEDS: SODIUM CHLORIDE 0.9% IV 1,000 ML 999 ML IV CONT (01:10)
[2024-06-20] MEDS: SODIUM CHLORIDE 0.9% IV 50 ML 999 ML (01:11)
--- OUTSIDE RECORDS SUMMARY | 2024-06-20 01:13 | XMS_ITS | Clinical Summary ---
Author Organization [facility] Address [address], [address] [address] Phone Care Team Providers Care Farm Agent Name Role Phone Frantz Grissom MD Primary Care Provider [phone] Diaz Wen DO Unavailable [phone] Immunizations Immunization Administration Dates Next Due [...] Payer (Ef fective 2012-Present) Name:Osvaldo Chaidez Member ID:[id number] Relation to Subscriber:Self Name:OSVALDO CHAIDEZ Subscriber ID:[id number] Payer ID:[id number] Group ID:Not on file Type:Not on file Address: [facility] [address] [facility] [employer] [facility] [address] [facility] Care Teams Farm Agent Relationship Specialty Start Date End Date Frantz Grissom MD [address] [place] [address] PCP - General Internal Medicine 03/13/15 Diaz Wen DO [address] [place] [address] Gastroenterology 03/13/15
--- OUTSIDE RECORDS SUMMARY | 2024-06-20 01:13 | XMS_ITS | Encounter Summary ---
Author Organization [facility] Address [address] [place] [address] Care Team Providers Care Wheel Alignment Mechanic Name Role Phone Frantz Grissom MD Primary Care Provider [phone] Encounter Details Date Type Department Care Team (Late st Contact Info) Description 10/31/2020 Lab Requisition [facility] DermPath Lab [address] [facility] [place] [phone] Pan Sabillon Jr., MD [address] [facility] [address] [place] [address] Social History Tobacco Use Types Packs/Day Years [...] AM CDT) Case Report Dermatopathology Report Case: [id number] Authorizing Provider: Pan Sabillon Jr., MD Collected: 10/29/2020 03:33 AM Ordering Location: [facility] DermPath Lab Received: 10/31/2020 05:59 AM Pathologist: [...] specimen consists of a shave biopsy measuring [id number]. Jar 0. 1 2:51 PM CDT DERMATOPATHOLOGY [...] characteristic determined by the Dermatopathology Laboratory at [facility], directed by Dr. Marychuy Rodriguez. These tests need not be, and therefore are not, approved by the [place] Food and Drug Administration. The tests are used for clinical purposes. Billing Codes Specimen Charges Stain Charges 60307 1 1 2:51 PM CDT DERMATOPATHOLOGY LABORATORY Embedded Images 1 2:51 PM CDT DERMATOPATHOLOGY LABORATORY Pathology/Cytolo gy TISSUE SPECIMEN FROM SKIN / Unknown 10/29/2020 3:33 AM CDT 10/31/2020 5:59 AM CDT us Pan Sabillon Jr., MD LAB - PATHOLOGY/CYTOLOG Y ORDERABLES Final Result DERMATOPATHOLOGY LABORATORY [facility] - Department of Dermatology [address], [address] [phone] documented in this encounter Visit Diagnoses Not on filedocumented in this encounter Care Teams Wheel Alignment Mechanic Relationship Specialty Start Date End Date Frantz Grissom MD [address] [facility] [address] [place] [address] PCP - General 10/30/20 documented as of this encounter
--- OUTSIDE RECORDS SUMMARY | 2024-06-20 01:13 | XMS_ITS | Clinical Summary ---
Author Organization [facility] Address [address] [place] [address] Care Team Providers Care Data Deliverables Manager Name Role Phone Frantz Grissom MD Primary Care Provider [phone] Source Comments [facility] slinkset,non-owned Affiliates and Associated Physician Practices is amultiple site organization consisting of ambulatory clinics and hospital sitesin [place], [place], [place] and [place]. This disclosure is being madepursuant to the Care Everywhere program and may not contain all information available regarding this patient. Last updated 17.[facility] slinkset Social History Tobacco Use Types Packs/Day Years [...] MEDICARE [employer] MANAGED MEDICARE ADV Care Teams Data Deliverables Manager Relationship Specialty Start Date End Date Frantz Grissom MD [address] [place] [address] PCP - General 10/30/20
--- NOTE | 2024-06-20 01:30 | ED_ITS ---
HPI - General Adult General Chief complaint: Headache Stated complaint: headache Time Seen by Provider: 06/20/24 00:33 History of Present Illness HPI narrative: Patient is a 78-year-old female who presents the emergency department this evening complaining of a headache that she has had since Tuesday. Describes it as a throbbing headache in a bandlike shape across her entire cranium radiating to her neck. Denies any neck stiffness. Patient states that she has taken ibuprofen and Tylenol which has only minimally improved her headache. Patient states that the headache is associated with nausea and a stated that she did have 1 vomiting episode prior to coming to the emergency department this evening. Patient also states that since Tuesday she has not had an appetite because he. Admits to history of migraines but states that she has not had 1 in 40 years. Also states that this feels very different than her previous migraines. Patient denies any recent illness, fevers or chills, any recent falls or trauma and denies any vision changes. There are no additional modifying, alleviating, or precipitating factors at this time. Related Data Home Medications ?Medication ?Instructions ?Recorded ?Confirmed ?Last Taken ?Type melatonin 3 mg capsule 3 mg PO QHS 10/24/20 03/21/24 01/20/22 History Allergies Allergy/AdvReac Type Severity Reaction Status Date / Time ciprofloxacin Allergy Mild pt does Verified 06/20/24 00:30 not remember codeine Allergy Mild Rash Verified 06/20/24 00:30 inositol Allergy Mild Rash Verified 06/20/24 00:30 niacin Allergy Mild Rash Verified 06/20/24 00:30 niacinamide Allergy Mild Rash Verified 06/20/24 00:30 Penicillins Allergy Mild Itching Verified 06/20/24 00:30 Sulfa (Sulfonamide Allergy Mild pt does Verified 06/20/24 00:30 Antibiotics) not remember Review of Systems 2 Review of Systems: All systems are reviewed and are negative unless stated otherwise in the HPI. PMFSH Past Medical History Medical History Bloating Gastroparesis Weight gain Anxiety Chronic GERD Major depressive disorder, recurrent episode, unspecified Essential (primary) hypertension Mixed hyperlipidemia Family History Family History Father Hypertension Family history of coronary artery disease Mother Hypertension Family history of coronary artery disease Family history of Alzheimer's disease Sibling Hypertension Family history of diabetes mellitus in first degree relative Patient's sister is Acute myocardial infarction Family history of cardiovascular disease Family history of heart disease in male family member before age 55 Social History Social History Smoking packs per day: 2 Smoking cigarettes per day: 40.0 Years smoked: 15 Smoking pack-years: 30.00 Smoking status: Former smoker Tobacco type: cigarettes Second hand tobacco smoke exposure: No Smoking end date: 03/07/93 Alcohol intake: current Drinks per week: 3 Alcohol use details: 3 MARGARITAS A WEEK Substance use: never Substance use type: does not use Lack of Transportation: No Lack of Food: Never True Current Housing: I Have Housing Concerned About Future Housing: No Difficulty Paying Gas/Electric Bills: No Difficulty Paying for Meds: No Currently Unemployed: No Education: High School Diploma/GED Difficulty w/ Childcare or Family Care: No Living arrangements: with family Spiritual care concerns: No Exam 2 Narrative: General: Alert, awake, afebrile, in no acute distress. HEENT: PERRL, no rhinorrhea, no post nasal drip, oropharynx clear. Neck: Trachea midline, no JVD, no lymphadenopathy, no midline tenderness to palpation over the cervical spine, negative Brudzinski sign, negative Jolt test, and no nuchal rigidity. Cardiovascular: Regular rate and rhythm, no murmurs, rubs or gallops, no peripheral edema. Respiratory: Clear to auscultation bilaterally, no tachypnea, no wheezing, no rhonchi, no rubs, no respiratory distress. Abdomen: Soft, nontender, nondistended, no rebound, no guarding, no peritoneal signs. Musculoskeletal: No joint swelling or deformity, normal muscle tone. Skin: No rashes or petechia, no signs of infection. Psychiatric: Alert and oriented, normal behavior and judgment for situation. Neurological: Alert and oriented to person, place, and time. Follows all commands. No focal deficits, speech is clear and fluent. Course Vital Signs Vital signs: Vital Signs Temperature 98 F 06/20/24 00:41 Pulse Rate 101 H 06/20/24 00:41 Respiratory Rate 18 06/20/24 00:41 Blood Pressure 151/94 H 06/20/24 00:41 Pulse Oximetry 98 06/20/24 00:41 Oxygen Delivery Room Air 06/20/24 00:41 Temperature 98 F 06/20/24 00:41 Pulse Rate 85 06/20/24 02:05 Respiratory Rate 20 06/20/24 02:05 Blood Pressure 135/72 06/20/24 02:05 Pulse Oximetry 98 06/20/24 02:05 Oxygen Delivery Room Air 06/20/24 00:41 Medical Decision Making MDM Narrative Medical decision making narrative: The patient was evaluated by myself in the emergency department. History is obtained from patient who is an independent historian and physical exam was performed. External medical records were reviewed at this time. IV was established and pertinent tests were ordered. Patient was administered 1 L IV fluid bolus with normal saline, 10 mg of IV Reglan, 25 mg of IV Benadryl and 1 g of oral Tylenol. Laboratory results obtained revealing a leukocytosis of 18.6, hemoglobin of 17.2, otherwise unremarkable. Patient was informed of these findings at bedside. When asked regarding her water intake, patient admits that she rarely drinks any water throughout the day and she has always been terrible about it. Patient was informed the dehydration which is likely the cause of her elevated hemoglobin due to hemoconcentration is the cause of her headache. At this time, patient rates her headache a 1/10 from an 8/10 after Reglan, Benadryl, Tylenol and a L of IV fluids. Imaging studies obtained included CT brain without IV contrast which was independently interpreted by me revealing no acute intracranial process, which is pending final radiology interpretation. CXR was obtained at this time and independently interpreted by me revealing no acute cardiopulmonary process. Chest x-ray is currently pending official radiology read. Differential diagnosis considerations include migraine headache, tension headache, dehydration, acute viral syndrome, meningitis. At this time, differentials were discussed with the patient at bedside, given the improvement of her headache, lack of fever (temperature was obtained rectally in the emergency department), neck stiffness and meningitis risk factors I did inform the patient that my suspicion for meningitis is very low. Patient was informed that she will need to have her blood work we checked by her primary care physician within the next 3-5 days to monitor her leukocytosis for resolution. Patient was also provided with strict return precautions including recurrent headaches that are nonresponsive to [id number] medications, persistent nausea/vomiting, and fever and patient is in agreement. Patient was administered 15 mg of IV Toradol at this time and on repeat assessment, patient states that her headache has completely resolved. Comorbidities impacting this visit include none. I have evaluated and discussed social determinants of health with the patient that could potentially impact subsequent diagnosis and treatment plans. On repeat assessment of the patient, reevaluation revealed that the patient is doing well and is in no acute distress. Patient symptoms have improved since she arrived to our emergency department. Repeat vital signs were all reviewed and noted to be stable. Differential diagnosis and treatment plan were discussed with the patient at bedside. Patient agrees with discussion and after shared medical decision making agrees with admission. All questions were answered to the patient's satisfaction. Vital Signs Vital Signs: Vital Signs Temperature 98 F 06/20/24 00:41 Pulse Rate 101 H 06/20/24 00:41 Respiratory Rate 18 06/20/24 00:41 Blood Pressure 151/94 H 06/20/24 00:41 Pulse Oximetry 98 06/20/24 00:41 Oxygen Delivery Room Air 06/20/24 00:41 Temperature 98 F 06/20/24 00:41 Pulse Rate 85 06/20/24 02:05 Respiratory Rate 20 06/20/24 02:05 Blood Pressure 135/72 06/20/24 02:05 Pulse Oximetry 98 06/20/24 02:05 Oxygen Delivery Room Air 06/20/24 00:41 Lab Data 06/20/24 01:02 06/20/24 01:02 Labs: Lab Results 06/20/24 Range/Units 01:02 WBC 18.6 H (4.5-10.0) K/mm3 RBC 5.97 H (4.2-5.4) M/mm3 Hgb 17.2 H (12.0-15.0) g/dL Hct 54.3 H (37.0-47.0) % MCV 91.0 (80-100) fl MCH 28.8 (26-34) pg MCHC 31.7 L (32-36) g/dl RDW 12.9 (11.5-14.5) % Plt Count 281 (150-375) k/mm3 MPV 9.1 (7.4-10.4) fl Immature Gran % (Auto) 0.6 H (0-0.5) % Neut % (Auto) 84.2 H (45.5-73.1) % Lymph % (Auto) 8.4 L (18.3-44.2) % [place] % (Auto) 6.5 (2.6-8.5) % Eos % (Auto) 0.1 (0-4.4) % Baso % (Auto) 0.2 (0.2-1.2) % Lymph # (Auto) 1.56 (0.9-3.2) K/mm3 [place] # (Auto) 1.2 H (0.1-0.6) K/mm3 Eos # (Auto) 0.0 (0-0.3) K/mm3 Baso # (Auto) 0.0 (0.0-0.1) K/mm3 Abs Immat Gran (auto) 0.11 H (0.00-0.031) K/mm3 Absolute Neuts (auto) 15.7 H (1.3-6.7) K/mm3 Absolute Nucleated RBC 0.000 (0.0-0.012) K/mm3 Nucleated RBC % 0.0 (0.0-0.2) % Sodium 137 (137-145) mmol/L Potassium 4.8 (3.4-5.0) mmol/L Chloride 103 (98-107) mmol/L Carbon Dioxide 22 (22-30) mmol/L Anion Gap 12 (4-12) mmol/L BUN 16 (7-17) mg/dL Creatinine 0.74 (0.7-1.0) mg/dL Estim Creat Clear Calc 58 ml/min Estimated GFR > 60 (59 - ) Glucose 167 H (65-110) mg/dL Calcium 9.5 (8.4-10.2) mg/dL Magnesium 2.2 (1.6-2.3) mg/dL Total Bilirubin 1.1 (0.2-1.3) mg/dL AST 20 (14-36) U/L ALT 16 (6-35) U/L Alkaline Phosphatase 123 (38-126) U/L Total Protein 7.0 (6.3-8.2) g/dL Albumin 4.2 (3.5-5.1) g/dL Discharge Plan Discharge Clinical Impression: Headache, Leukocytosis, Dehydration Patient Disposition: Home Condition: Improved Instructions: Antibiotic Form, Acute Headache (ED), Leukocytosis (ED) Additional Instructions: You are evaluated in the emergency department this evening regarding your headache. You were informed regarding your blood work results including your white blood cell count of 18 and hemoglobin of 17.2. Your elevated hemoglobin is likely due to dehydration, and your elevated white blood cell count will need to be we checked by her primary care physician within the next week to monitor for resolution. You will need to return to the emergency department if your headache returns and is not controlled with [id number] pain medications such as Tylenol and ibuprofen. If you develop any fevers. Your prescribed nausea medication and instructed to take as needed for nausea/vomiting. If you are unable to keep any fluids or food down and continued to vomit despite the nausea medication that is another indication to return to the emergency department. Patient Language: Frisian Prescriptions: New ondansetron 4 mg tablet,disintegrating 4 mg PO Q8H PRN (Reason: nausea and vomiting) Qty: 10 0RF No Action naproxen 500 mg tablet 500 mg PO BID PRN (Reason: pain) Qty: 60 1RF melatonin 3 mg capsule 3 mg PO QHS cholecalciferol (vitamin D3) 50 mcg (2,000 unit) tablet 50 mcg PO DAILY Qty: 90 1RF duloxetine 60 mg capsule,delayed release(DR/EC) See Rx Instructions .ROUTE .COMPLEX Qty: 90 1RF Dose Instruction: Take 1 capsule by mouth once daily Rx Instructions: Take 1 capsule by mouth once daily rosuvastatin 40 mg tablet 40 mg PO DAILY Qty: 90 1RF esomeprazole magnesium 40 mg capsule,delayed release(DR/EC) 40 mg PO BID Qty: 180 1RF lisinopril 10 mg tablet See Rx Instructions .ROUTE .COMPLEX Qty: 90 0RF Dose Instruction: Take 1 tablet by mouth once daily Rx Instructions: Take 1 tablet by mouth once daily verapamil 240 mg tablet extended release See Rx Instructions .ROUTE .COMPLEX Qty: 90 0RF Dose Instruction: Take 1 tablet by mouth once daily Rx Instructions: Take 1 tablet by mouth once daily alprazolam 0.5 mg tablet 0.5 mg PO DAILY Qty: 30 1RF tramadol 50 mg tablet 50 mg PO Q8H PRN (Reason: pain) Qty: 30 1RF Rx Instructions: TAKE 1 TABLET BY MOUTH EVERY 8 HOURS NEEDED Follow-up/Referrals: Nirmala Soto, GRAD[employer] 9 THROUGH 12 TEACHER-C [Primary Care Provider] - 3 Days Time of Disposition: 03:06
[2024-06-20 01:34] LABS: Alanine Aminotransferase 16 U/L (6-35); Albumin Level 4.2 g/dL (3.5-5.1); Alkaline Phosphatase 123 U/L (38-126); Anion Gap 12 mmol/L (4-12); Aspartate Amino Transferase 20 U/L (14-36); Bilirubin,Total 1.1 mg/dL (0.2-1.3); Blood Urea Nitrogen 16 mg/dL (7-17); Calcium 9.5 mg/dL (8.4-10.2); Carbon Dioxide 22 mmol/L (22-30); Chloride 103 mmol/L (98-107); Estimated CRCL calculation 58 ml/min; Estimated Glomerular Filt Rate > 60; Glucose 167 mg/dL (65-110); Magnesium 2.2 mg/dL (1.6-2.3); Potassium 4.8 mmol/L (3.4-5.0); Sodium 137 mmol/L (137-145)
[2024-06-20 02:05] VITALS: BP 135/72; PULSE 85; RESP 20; O2SAT 98
[2024-06-20] MEDS: KETOROLAC 15 MG/ML VIAL (*BKC) IV PUSH (03:17)
== END 2024-06-20 04:08 | disposition home or self-care (01) ==
PROVIDERS: Emergency Provider Emergency Medicine; PCP Nurse Practitioner
DX: R51.9 Headache, unspecified (principal); E86.0 Dehydration; D72.829 Elevated white blood cell count, unspecified; I10 Essential (primary) hypertension; E78.2 Mixed hyperlipidemia; K21.9 Gastro-esophageal reflux disease without esophagitis; K31.84 Gastroparesis; F41.9 Anxiety disorder, unspecified; F33.9 Major depressive disorder, recurrent, unspecified; Z87.891 Personal history of nicotine dependence; Z79.899 Other long term (current) drug therapy
CPT/HCPCS: 36415; 70450; 71045; 80053; 83735; 85025; 96361; 96374; 96375; 99284; A9270; J1200; J1885; J2765; J7030

== ENCOUNTER 2024-06-26 14:12 | Outpatient (CLI) | payer MEDICARE, SELFPAY ==
--- OUTSIDE RECORDS SUMMARY | 2024-06-26 16:23 | XMS_ITS | Clinical Summary ---
Author Organization [facility] Address [address], [address] [address] Phone Care Team Providers Care Wrapper Stemmer Operator Name Role Phone Frantz Grissom MD Primary Care Provider [phone] Diaz Wen DO Unavailable [phone] Immunizations Immunization Administration Dates Next Due [...] Payer (Ef fective 2012-Present) Name:Osvaldo Chaidez Member ID:[id number] Relation to Subscriber:Self Name:OSVALDO CHAIDEZ Subscriber ID:[id number] Payer ID:[id number] Group ID:Not on file Type:Not on file Address: [facility] [address] [facility] [employer] [facility] [place] [address] [facility] Care Teams Wrapper Stemmer Operator Relationship Specialty Start Date End Date Frantz Grissom MD PCP - General Internal Medicine 03/13/15 Diaz Wen DO Gastroenterology 03/13/15
--- OUTSIDE RECORDS SUMMARY | 2024-06-26 16:23 | XMS_ITS | Clinical Summary ---
Author Organization [facility] Address [address] [place] [address] Care Team Providers Care Lock Master Name Role Phone Frantz Grissom MD Primary Care Provider [phone] Source Comments [facility] [employer],non-owned Affiliates and Associated Physician Practices is amultiple site organization consisting of ambulatory clinics and hospital sitesin [place], [place], [place] and [place]. This disclosure is being madepursuant to the Care Everywhere program and may not contain all information available regarding this patient. Last updated 17.[facility] [employer] Social History Tobacco Use Types Packs/Day Years [...] MEDICARE [employer] MANAGED MEDICARE ADV Care Teams Lock Master Relationship Specialty Start Date End Date Frantz Grissom MD [address] [place] [address] PCP - General 10/30/20
--- OUTSIDE RECORDS SUMMARY | 2024-06-26 16:23 | XMS_ITS | Encounter Summary ---
Author Organization [facility] Address [address] [place] [address] Care Team Providers Care Technology Infusion Specialist Name Role Phone Frantz Grissom MD Primary Care Provider [phone] Encounter Details Date Type Department Care Team (Late st Contact Info) Description 10/31/2020 Lab Requisition [facility] [address] [facility], [place] [id number] Pan Sabillon Jr., MD [address] [facility] [address] [place] [address] Social History Tobacco Use Types Packs/Day Years [...] AM CDT) Case Report Dermatopathology Report Case: [id number] Authorizing Provider: Pan Sabillon Jr., MD Collected: 10/29/2020 03:33 AM Ordering Location: [facility] Received: 10/31/2020 05:59 AM Pathologist: [...] specimen consists of a shave biopsy measuring [id number]. Jar 0. 1 2:51 PM CDT DERMATOPATHOLOGY [...] characteristic determined by the Dermatopathology Laboratory at [facility], directed by Dr. Marychuy Rodriguez. These tests need not be, and therefore are not, approved by the [place] Food and Drug Administration. The tests are used for clinical purposes. Billing Codes Specimen Charges Stain Charges 97734 1 1 2:51 PM CDT DERMATOPATHOLOGY LABORATORY Embedded Images 1 2:51 PM CDT DERMATOPATHOLOGY LABORATORY Pathology/Cytolo gy TISSUE SPECIMEN FROM SKIN / Unknown 10/29/2020 3:33 AM CDT 10/31/2020 5:59 AM CDT us Pan Sabillon Jr., MD LAB - PATHOLOGY/CYTOLOG Y ORDERABLES Final Result DERMATOPATHOLOGY LABORATORY [facility] - Department of Dermatology [address], [address] [phone] documented in this encounter Visit Diagnoses Not on filedocumented in this encounter Care Teams Technology Infusion Specialist Relationship Specialty Start Date End Date Frantz Grissom MD [address] [facility] [address] [place] [address] PCP - General 10/30/20 documented as of this encounter
[2024-06-26 19:49] LABS: Hemoglobin 15.1 g/dL (12.0-15.0); Mean Corpuscular HGB Conc 30.8 g/dl (32-36); Mean Corpuscular Hemoglobin 28.9 pg (26-34); Mean Corpuscular Volume 93.9 fl (80-100); Platelet Count Result 288 k/mm3 (150-375); Red Blood Count 5.22 M/mm3 (4.2-5.4); Red Cell Distribution Width 12.9 % (11.5-14.5); White Blood Count 13.4 K/mm3 (4.5-10.0)
== END 2024-06-26 14:13 | disposition home or self-care (01) ==
LOC: ANHGOSHLAB 14:13
PROVIDERS: PCP Family Medicine; Visit Provider Nurse Practitioner
DX: I10 Essential (primary) hypertension (principal)
CPT/HCPCS: 36415; 85027

== ENCOUNTER 2024-07-18 14:26 | Outpatient (CLI) | payer MEDICARE, SELFPAY ==
--- OUTSIDE RECORDS SUMMARY | 2024-07-18 14:32 | XMS_ITS | Clinical Summary ---
Author Organization [facility] Address [address] [place] [address] Care Team Providers Care Electronic Publisher Name Role Phone Frantz Grissom MD Primary Care Provider [phone] Source Comments [facility] [email or web address],non-owned Affiliates and Associated Physician Practices is amultiple site organization consisting of ambulatory clinics and hospital sitesin [place], [place], [place] and [place]. This disclosure is being madepursuant to the Care Everywhere program and may not contain all information available regarding this patient. Last updated 17.[facility] [email or web address] Social History Tobacco Use Types Packs/Day Years [...] 2023-2 5 season) 2023 DEPRESSION SCREENING 03/07/2024 INFLUENZA VACCINE (Season Ended) 2024 HEPATITIS B [...] age to complete this topic Insurance MEDICARE Member Subscriber Plan / Payer ( fective 2012-Present) Name:Osvaldo Chaidez Member ID:[id number] Relation to Subscriber:Self Name:OSVALDO CHAIDEZ Subscriber ID:[id number] Payer ID:Not on file Group ID:Not on file Type:Medicare Address: [place] [id number] MEDICARE Member Subscriber Plan / Payer (Ef fective 2012-Present) Name:Osvaldo Chaidez Member ID:[id number] Relation to Subscriber:Self Name:OSVALDO CHAIDEZ Subscriber ID:[id number] Payer ID:Not on file Group ID:Not on file Type:Medicare Address: [place] [id number] MEDICARE Member Subscriber Plan / Payer (Ef fective 2012-Present) Name:Osvaldo Chaidez Member ID:[id number] Relation to Subscriber:Self Name:OSVALDO CHAIDEZ Subscriber ID:[id number] Payer ID:Not on file Group ID:Not on file Type:Medicare Address: [place] [id number] MEDICARE [facility] MANAGED MEDICARE ADV Care Teams Electronic Publisher Relationship Specialty Start Date End Date Frantz Grissom MD [address] [place] [address] PCP - General 10/30/20
--- OUTSIDE RECORDS SUMMARY | 2024-07-18 14:32 | XMS_ITS | Encounter Summary ---
Author Organization [facility] Address [address] [place] [address] Care Team Providers Care Mounter Smoking Pipe Name Role Phone Frantz Grissom MD Primary Care Provider [phone] Encounter Details Date Type Department Care Team (Late st Contact Info) Description 10/31/2020 Lab Requisition [facility] DermPath Lab [address] [facility], [place] [phone] Pan Sabillon Jr., MD [address] [facility] [address] [place] [address] Social History Tobacco Use Types Packs/Day Years [...] AM CDT) Case Report Dermatopathology Report Case: [id number] Authorizing Provider: Pan Sabillon Jr., MD Collected: 10/29/2020 03:33 AM Ordering Location: [facility] Received: 10/31/2020 05:59 AM [...] specimen consists of a shave biopsy measuring [id number]. Jar 0. 1 2:51 PM CDT DERMATOPATHOLOGY [...] characteristic determined by the Dermatopathology Laboratory at [facility], directed by Dr. Marychuy Rodriguez. These tests need not be, and therefore are not, approved by the [place] Food and Drug Administration. The tests are used for clinical purposes. Billing Codes Specimen Charges Stain Charges 48493 1 1 2:51 PM CDT DERMATOPATHOLOGY LABORATORY Embedded Images 1 2:51 PM CDT DERMATOPATHOLOGY LABORATORY Pathology/Cytolo gy TISSUE SPECIMEN FROM SKIN / Unknown 10/29/2020 3:33 AM CDT 10/31/2020 5:59 AM CDT us Pan Sabillon Jr., MD LAB - PATHOLOGY/CYTOLOG Y ORDERABLES Final Result DERMATOPATHOLOGY LABORATORY [facility] - Department of Dermatology [address], [address] [phone] documented in this encounter Visit Diagnoses Not on filedocumented in this encounter Care Teams Mounter Smoking Pipe Relationship Specialty Start Date End Date Frantz Grissom MD [address] [facility] [address] [place] [address] PCP - General 10/30/20 documented as of this encounter
--- OUTSIDE RECORDS SUMMARY | 2024-07-18 14:32 | XMS_ITS | Clinical Summary ---
Author Organization [facility] Address [address], [address] [address] Phone Care Team Providers Care Audio Video Tech Name Role Phone Frantz Grissom MD Primary Care Provider [phone] Diaz Wen DO Unavailable [phone] Immunizations Immunization Administration Dates Next Due Covid-19, [...] patient's age to complete this topic Insurance [facility] Care Teams Audio Video Tech Relationship Specialty Start Date End Date Frantz Grissom MD PCP - General Internal Medicine 03/13/15 Diaz Wen DO [phone] (work) Gastroenterology 03/13/15
[2024-07-18 19:36] LABS: Hematocrit 47.8 % (37.0-47.0); Hemoglobin 14.6 g/dL (12.0-15.0); Mean Corpuscular HGB Conc 30.5 g/dl (32-36); Mean Corpuscular Volume 94.8 fl (80-100); Mean Platelet Volume 10.1 fl (7.4-10.4); Platelet Count Result 267 k/mm3 (150-375); Red Blood Count 5.04 M/mm3 (4.2-5.4); Red Cell Distribution Width 13.2 % (11.5-14.5); White Blood Count 11.4 K/mm3 (4.5-10.0)
[2024-07-18 20:09] LABS: Alanine Aminotransferase 18 U/L (6-35); Albumin Level 3.8 g/dL (3.5-5.1); Alkaline Phosphatase 103 U/L (38-126); Anion Gap 4 mmol/L (4-12); Aspartate Amino Transferase 28 U/L (14-36); Bilirubin,Total 0.5 mg/dL (0.2-1.3); Blood Urea Nitrogen 13 mg/dL (7-17); Carbon Dioxide 30 mmol/L (22-30); Chloride 104 mmol/L (98-107); Cholesterol 172 mg/dL (0-200); Estimated Glomerular Filt Rate > 60; Glucose 91 mg/dL (65-110); HDL Direct 59 mg/dL; Potassium 4.6 mmol/L (3.4-5.0); Sodium 138 mmol/L (137-145); Triglycerides 134 mg/dL (<150)
[2024-07-18 20:21] LABS: LDL Cholesterol Direct 71 mg/dL
[2024-07-18 20:52] LABS: Hemoglobin A1C 5.7 % (<5.7)
== END 2024-07-18 14:27 | disposition home or self-care (01) ==
LOC: ANHGOSHLAB 14:27
PROVIDERS: PCP Family Medicine; Visit Provider Nurse Practitioner
DX: E78.5 Hyperlipidemia, unspecified (principal); R73.03 Prediabetes; I10 Essential (primary) hypertension
CPT/HCPCS: 36415; 80053; 80061; 83036; 85027

== ENCOUNTER 2024-08-14 12:46 | Outpatient (CLI) | payer MEDICARE, SELFPAY ==
--- OUTSIDE RECORDS SUMMARY | 2024-08-14 13:37 | XMS_ITS | Encounter Summary ---
Author Organization [facility] Address [address] [place] [address] Care Team Providers Care Slubber Operator Name Role Phone Frantz Grissom MD Primary Care Provider [phone] Encounter Details Date Type Department Care Team (Late st Contact Info) Description 10/31/2020 Lab Requisition [facility] DermPath Lab [address] [facility], [place] [phone] Pan Sabillon Jr., MD [address] [facility] [address] [place] [address] Social History Tobacco Use Types Packs/Day Years [...] AM CDT) Case Report Dermatopathology Report Case: [id number] Authorizing Provider: Pan Sabillon Jr., MD Collected: 10/29/2020 03:33 AM Ordering Location: [facility] Derm[facility] Lab Received: 10/31/2020 05:59 AM Pathologist: Rosalinda Rodriguez MD Specimen: Skin, left lateral superior chest 2:51 PM CDT DERMATOPATHOLOGY LABORATORY Final Diagnosis Specimen A. SKIN, left lateral superior chest: BENIGN VERRUCOUS KERATOSIS, INFLAMED (L82.1) 2:51 PM CDT DERMATOPATHOLOGY LABORATORY at 1451 CDT Clinical History Inflamed seborrheic keratosis vs verruca vulgaris vs squamous cell carcinoma. . 1 2:51 PM CDT DERMATOPATHOLOGY LABORATORY Gross Description Specimen A: Received is one formalin filled container labeled with the patient's name and designated left lateral superior chest. The specimen consists of a shave biopsy measuring [id number]. Jar 0. 1 2:51 PM CDT DERMATOPATHOLOGY LABORATORY Microscopic Description Specimen A. SKIN, left lateral superior chest: Sections show hyperkeratosis, papillomatosis, hypergranulosis, and acanthosis. Inflammatory cells are present within the dermis. These histological findings can be seen in a verruca vulgaris or a seborrheic keratosis. 1 2:51 PM CDT DERMATOPATHOLOGY LABORATORY Disclaimer An external and internal positive and negative controls are appropriate for the histochemical, immunohistochemical and immunofluorescence stain(s) in this case (if any), except where stated explicitly. The performance characteristics of the stain(s) cited in this report were developed and its performance characteristic determined by the Dermatopathology Laboratory at [facility], directed by Dr. Marychuy Rodriguez. These tests need not be, and therefore are not, approved by the [place] Food and Drug Administration. The tests are used for clinical purposes. Billing Codes Specimen Charges Stain Charges 88136 1 1 2:51 PM CDT DERMATOPATHOLOGY LABORATORY Embedded Images 1 2:51 PM CDT DERMATOPATHOLOGY LABORATORY Pathology/Cytolo gy TISSUE SPECIMEN FROM SKIN / Unknown 10/29/2020 3:33 AM CDT 10/31/2020 5:59 AM CDT us Pan Sabillon Jr., MD LAB - PATHOLOGY/CYTOLOG Y ORDERABLES Final Result DERMATOPATHOLOGY LABORATORY [facility] - Department of Dermatology [address], [address] [phone] documented in this encounter Visit Diagnoses Not on filedocumented in this encounter Care Teams Slubber Operator Relationship Specialty Start Date End Date Frantz Grissom MD [address] [facility] [address] [place] [address] PCP - General 10/30/20 documented as of this encounter
--- OUTSIDE RECORDS SUMMARY | 2024-08-14 13:37 | XMS_ITS | Clinical Summary ---
Author Organization [facility] Address [address] [place] [address] Care Team Providers Care Profile Grinder Name Role Phone Frantz Grissom MD Primary Care Provider [phone] Source Comments [facility] [employer],non-owned Affiliates and Associated Physician Practices is amultiple site organization consisting of ambulatory clinics and hospital sitesin [place], [place], [place] and [place]. This disclosure is being madepursuant to the Care Everywhere program and may not contain all information available regarding this patient. Last updated 17.[facility] [employer] Social History Tobacco Use Types Packs/Day Years [...] Payer ( fective 2012-Present) Name:Osvaldo Chaidez Member ID:[id number] Relation to Subscriber:Self Name:OSVALDO CHAIDEZ Subscriber ID:[id number] Payer ID:Not on file Group ID:Not on file Type:Medicare Address: [place] [id number] MEDICARE Member Subscriber Plan / Payer (Ef fective 2012-Present) Name:Osvaldo Chaidez Member ID:[id number] Relation to Subscriber:Self Name:OSVALDO CHAIDEZ Subscriber ID:[id number] Payer ID:Not on file Group ID:Not on file Type:Medicare Address: [place] [phone] MEDICARE Member Subscriber Plan / Payer (Ef fective 2012-Present) Name:Osvaldo Chaidez Member ID:[id number] Relation to Subscriber:Self Name:OSVALDO CHAIDEZ Subscriber ID:[id number] Payer ID:Not on file Group ID:Not on file Type:Medicare Address: [place] [id number] MEDICARE [facility] MANAGED MEDICARE ADV Care Teams Profile Grinder Relationship Specialty Start Date End Date Frantz Grissom MD [address] [place] [address] PCP - General 10/30/20
--- OUTSIDE RECORDS SUMMARY | 2024-08-14 13:37 | XMS_ITS | Clinical Summary ---
Author Organization [facility] Address [address], [address] [address] Phone Care Team Providers Care Material Expediter Name Role Phone Frantz Grissom MD Primary Care Provider [phone] Diaz Wen DO Unavailable [phone] Immunizations Immunization Administration Dates Next Due [...] Payer (Ef fective 2012-Present) Name:Osvaldo Chaidez Member ID:[id number] Relation to Subscriber:Self Name:OSVALDO CHAIDEZ Subscriber ID:[id number] Payer ID:[id number] Group ID:Not on file Type:Not on file Address: [facility] [address] [facility] [employer] [facility] [employer] [facility] [place] [address] [facility] Care Teams Material Expediter Relationship Specialty Start Date End Date Frantz Grissom MD PCP - General Internal Medicine 03/13/15 Diaz Wen DO [phone] (work) Gastroenterology 03/13/15
[2024-08-14 17:37] LABS: Hematocrit 47.7 % (37.0-47.0); Hemoglobin 14.4 g/dL (12.0-15.0); Mean Corpuscular HGB Conc 30.2 g/dl (32-36); Mean Corpuscular Hemoglobin 28.7 pg (26-34); Mean Corpuscular Volume 95.2 fl (80-100); Mean Platelet Volume 10.1 fl (7.4-10.4); Platelet Count Result 288 k/mm3 (150-375); Red Blood Count 5.01 M/mm3 (4.2-5.4); Red Cell Distribution Width 12.9 % (11.5-14.5); White Blood Count 9.6 K/mm3 (4.5-10.0)
== END 2024-08-14 12:47 | disposition home or self-care (01) ==
LOC: ANHGOSHLAB 12:47
PROVIDERS: PCP Family Medicine; Visit Provider Nurse Practitioner
DX: D72.829 Elevated white blood cell count, unspecified (principal)
CPT/HCPCS: 36415; 85027

== ENCOUNTER 2024-08-22 13:49 | Outpatient (CLI) | payer MEDICARE, SELFPAY ==
--- NOTE | ~2024-08-22 | MR_ITS ---
MRI of the lumbar spine Clinical History: Back pain Technique: Axial T2-weighted images, and sagittal T1-weighted, T2-weighted, and T2 fat-sat images wer e acquired. Findings: There is no fracture or subluxation of the lumbar spine. Vertebral bodies maintain normal h eight and alignment. No suspicious bone marrow signal abnormality seen. Intraosseous hemangioma noted at T12. At L1-L2, there is no disc bulge or herniation. No spinal canal stenosis or neural foraminal narrowin g. At L2-L3, there is no disc bulge or herniation. No spinal canal stenosis or neural foraminal narrowin g. L3-L4, there is no disc bulge or herniation. No spinal canal stenosis or neural foraminal narrowing. At L4-L5, there is minimal disc bulge. No spinal canal stenosis or neural foraminal narrowing. At L5-S1, there is minimal disc bulge with minimal facet arthropathy. No central canal stenosis. Ther e is mild to moderate right neural foraminal narrowing. There is minimal left neural foraminal narrow ing. Paravertebral soft tissues are unremarkable. Impression: Mild degenerative change, as above. Reviewed, dictated and finalized at location . Impression: Mild degenerative change, as above.
--- OUTSIDE RECORDS SUMMARY | 2024-08-22 15:30 | XMS_ITS | Encounter Summary ---
Author Organization [facility] Address [address] [place] [address] Care Team Providers Care Resource Technician Name Role Phone Frantz Grissom MD Primary Care Provider [phone] Encounter Details Date Type Department Care Team (Late st Contact Info) Description 10/31/2020 Lab Requisition [facility] D[facility] Lab [address] [facility] [place] [phone] Pan Sabillon Jr., MD [address] [facility] [address] [place] [address] Social History Tobacco Use Types Packs/Day Years [...] AM CDT) Case Report Dermatopathology Report Case: [id number] Authorizing Provider: Pan Sabillon Jr., MD Collected: 10/29/2020 03:33 AM Ordering Location: [facility] Received: 10/31/2020 05:59 AM Pathologist: [...] specimen consists of a shave biopsy measuring [id number]. Jar 0. 1 2:51 PM CDT DERMATOPATHOLOGY [...] characteristic determined by the Dermatopathology Laboratory at [facility], directed by Dr. Marychuy Rodriguez. These tests need not be, and therefore are not, approved by the [place] Food and Drug Administration. The tests are used for clinical purposes. Billing Codes Specimen Charges Stain Charges 06457 1 1 2:51 PM CDT DERMATOPATHOLOGY LABORATORY Embedded Images 1 2:51 PM CDT DERMATOPATHOLOGY LABORATORY Pathology/Cytolo gy TISSUE SPECIMEN FROM SKIN / Unknown 10/29/2020 3:33 AM CDT 10/31/2020 5:59 AM CDT us Pan Sabillon Jr., MD LAB - PATHOLOGY/CYTOLOG Y ORDERABLES Final Result DERMATOPATHOLOGY LABORATORY [facility] - Department of Dermatology [address], [address] [phone] documented in this encounter Visit Diagnoses Not on filedocumented in this encounter Care Teams Resource Technician Relationship Specialty Start Date End Date Frantz Grissom MD [address] [facility] [address] [place] [address] PCP - General 10/30/20 documented as of this encounter
--- OUTSIDE RECORDS SUMMARY | 2024-08-22 15:30 | XMS_ITS | Clinical Summary ---
Author Organization [facility] Address [address] [place] [address] Care Team Providers Care Quality Assurance Qa Lab Analyst Name Role Phone Frantz Grissom MD Primary Care Provider [phone] Source Comments [facility] [employer],non-owned Affiliates and Associated Physician Practices is amultiple site organization consisting of ambulatory clinics and hospital sitesin [place], [place], [place] and [place]. This disclosure is being madepursuant to the Care Everywhere program and may not contain all information available regarding this patient. Last updated 17.[facility] [employer] Social History Tobacco Use Types Packs/Day Years [...] Payer ( fective 2012-Present) Name:Osvaldo Chaidez Member ID:[id number] Relation to Subscriber:Self Name:OSVALDO CHAIDEZ Subscriber ID:[id number] Payer ID:Not on file Group ID:Not on file Type:Medicare Address: [place] [phone] MEDICARE Member Subscriber Plan / Payer (Ef fective 2012-Present) Name:Osvaldo Chaidez Member ID:[id number] Relation to Subscriber:Self Name:OSVALDO CHAIDEZ Subscriber ID:[id number] Payer ID:Not on file Group ID:Not on file Type:Medicare Address: [place] [phone] MEDICARE Member Subscriber Plan / Payer (Ef fective 2012-Present) Name:Osvaldo Chaidez Member ID:[id number] Relation to Subscriber:Self Name:OSVALDO CHAIDEZ Subscriber ID:[id number] Payer ID:Not on file Group ID:Not on file Type:Medicare Address: [place] [id number] MEDICARE [facility] MANAGED MEDICARE ADV Care Teams Quality Assurance Qa Lab Analyst Relationship Specialty Start Date End Date Frantz Grissom MD [address] [place] [address] PCP - General 10/30/20
--- OUTSIDE RECORDS SUMMARY | 2024-08-22 15:30 | XMS_ITS | Clinical Summary ---
Author Organization [facility] Address [address], [address] [address] Phone Care Team Providers Care Machine Specialist Name Role Phone Frantz Grissom MD Primary Care Provider [phone] Diaz Wen DO Unavailable [phone] Immunizations Immunization Administration Dates Next Due [...] Health Maintenance Due Date Last Done Comments Hepatitis C Virus (HCV) Screening 1945 TdaP Immunization 1945 Zoster Immunization (1 of 2) 12/16/1997 Respiratory Syncytial Virus (RSV) Immunization (Adult) (1 - 1-dose 75+ series) 12/16/2022 SARS-COV-2 Immunization ( season) 2023 01/22/2021, 05/29/2020, 05/01/2020 Influenza Immunization (Season Ended) 2024 11/26/2019, 03/21/2019, 11/17/2017, Additional history exists Pneumococcal Immunization (50+ years) Completed 04/04/2017, 03/16/2016 Pneumococcal Immunization Combined Discontinued 04/04/2017, 03/16/2016 Hepatitis B Immunization Aged Out No longer eligible based on patient's age to complete this topic Human Papillomavirus (HPV) Immunization Aged Out No longer eligible based on patient's age to complete this topic Meningococcal Immunization (ACWY) Aged Out No longer eligible based on patient's age to complete this topic Rotavirus Immunization Aged Out No lo nger eligible based on patient's age to complete this topic Insurance MEDICARE [facility] Care Teams Machine Specialist Relationship Specialty Start Date End Date Frantz Grissom MD PCP - General Internal Medicine 03/13/15 Diaz Wen DO Gastroenterology 03/13/15
== END 2024-08-22 13:50 | disposition home or self-care (01) ==
PROVIDERS: PCP Family Medicine; Visit Provider Nurse Practitioner Family
DX: M51.369 Other intervertebral disc degeneration, lumbar region without mention of lumbar back pain or lower extremity pain (principal)
CPT/HCPCS: 72148

== ENCOUNTER 2024-11-29 11:17 | Outpatient (CLI) | payer MEDICARE, SELFPAY ==
[2024-11-29 17:03] LABS: Hematocrit 47.4 % (37.0-47.0); Hemoglobin 14.8 g/dL (12.0-15.0); Mean Corpuscular HGB Conc 31.2 g/dl (32-36); Mean Corpuscular Hemoglobin 28.7 pg (26-34); Mean Corpuscular Volume 91.9 fl (80-100); Platelet Count Result 266 k/mm3 (150-375); Red Blood Count 5.16 M/mm3 (4.2-5.4); White Blood Count 7.7 K/mm3 (4.5-10.0)
[2024-11-29 17:26] LABS: Alanine Aminotransferase 16 U/L (6-35); Albumin Level 3.5 g/dL (3.5-5.1); Alkaline Phosphatase 88 U/L (38-126); Anion Gap 6 mmol/L (4-12); Aspartate Amino Transferase 19 U/L (14-36); Bilirubin,Total 0.5 mg/dL (0.2-1.3); Blood Urea Nitrogen 10 mg/dL (7-17); Calcium 8.7 mg/dL (8.4-10.2); Carbon Dioxide 24 mmol/L (22-30); Chloride 107 mmol/L (98-107); Cholesterol 156 mg/dL (0-200); Estimated Glomerular Filt Rate > 60; Glucose 95 mg/dL (65-110); HDL Direct 57 mg/dL; Potassium 3.4 mmol/L (3.4-5.0); Sodium 137 mmol/L (137-145); Total Protein 6.1 g/dL (6.3-8.2); Triglycerides 155 mg/dL (<150)
[2024-11-29 17:45] LABS: Hemoglobin A1C 6.0 % (<5.7)
[2024-11-29 17:59] LABS: Thyroid Stimulating Hormone 1.800 uIU/mL (0.465-4.680)
== END 2024-11-29 11:18 | disposition home or self-care (01) ==
LOC: ANHGOSHLAB 11:17
PROVIDERS: PCP Family Medicine; Visit Provider Nurse Practitioner
DX: R73.03 Prediabetes (principal); I10 Essential (primary) hypertension; E78.5 Hyperlipidemia, unspecified; E55.9 Vitamin D deficiency, unspecified; E03.9 Hypothyroidism, unspecified
CPT/HCPCS: 36415; 80053; 80061; 82306; 83036; 84443; 85027

== ENCOUNTER 2024-12-20 13:06 | Outpatient (CLI) | payer MEDICARE, SELFPAY ==
--- NOTE | ~2024-12-20 | DEXA_ITS ---
Bone Density Report Name: OSVALDO ARROYO Age: 79 Sex: Female Ethnicity: White Date of : 1945 Indication: osteopenia; height loss; Referring Provider: Nirmala Soto Study: Bone densitometry was performed. Exam Date: December 20, 2024 Accession number: [id number] Bone Density: Region BMD T-score Z-score Classification AP Spine(L1-L4) 0.741 -2.8 -0.3 Osteoporosis Femoral Neck (Left) 0.481 -3.3 -1.1 Osteoporosis Total Hip (Left) 0.768 -1.4 0.5 Osteopenia Femoral Neck (Right) 0.584 -2.4 -0.2 Osteopenia Total Hip (Right) 0.739 -1.7 0.2 Osteopenia Total Hip Mean 0.753 -1.6 0.4 Osteopenia World Health Organization criteria for BMD impression classify patients as: Normal (T-score at or above -1.0), Osteopenia (T-score between -1.0 and -2.5), or Osteoporosis (T-score at or below -2.5). 10-year Fracture Risk: FRAX not reported because: Some T-score for Spine Total or Hip Total or Femoral Neck at or below -2.5 Previous Exams: -- Region Exam Age BMD T-score BMD Change BMD Change Date g/cm2 vs Baseline vs Previous -- AP Spine (L1-L4) 12/20/2024 79 0.741 -2.8 -13.7%# -5.8%* 05/27/2021 75 0.787 -2.4 -8.3%# 3.6%# 05/04/2019 73 0.759 -2.6 -11.5%# -11.5%# 12/23/2008 63 0.858 -1.7 Total Hip(Left) 12/20/2024 79 0.768 -1.4 -10.3%# -11.8%* 05/27/2021 75 0.870 -0.6 1.7%# 2.1%# 05/04/2019 73 0.852 -0.7 -0.4%# -0.4%# 12/23/2008 63 0.856 -0.7 Total Hip(Right) 12/20/2024 79 0.739 -1.7 -16.2%# -12.3%* 05/27/2021 75 0.843 -0.8 -4.4%# -2.1%# 05/04/2019 73 0.861 -0.7 -2.4%# -2.4%# 12/23/2008 63 0.882 -0.5 -- *Denotes significance at 95% confidence level, LSC for AP Spine = 0.022 g/cm2, LSC for Total Hip = 0.027 g/cm2 # Denotes dissimilar scan types or analysis methods Clinical Information Provided by Patient: Patient maximum height was 63 Menopause Age: 47 No regular weight bearing exercise Drinks caffeinated beverages Onset of menses at age 15 Number of children 4 Impression: The patient has osteoporosis, based on the Left Femoral Neck T-score. The BMD for the AP Spine (L1-L4) decreased, changing by -5.8% since the last DXA exam. The BMD for the Total Hip(Left) decreased, changing by -11.8% since the last DXA exam. The BMD for the Total Hip(Right) decreased, changing by -12.3% since the last DXA exam. Discussion: INCREASED RISK OF FRACTURE. BONE DENSITY IS UNDESIRABLY LOW AT ONE OR MORE SKELETAL SITES, CONSISTENT WITH POSTMENOPAUSAL OSTEOPOROSIS. This patient's lowest T-score meets the World Health Organization's (WHO) criteria for osteoporosis at one or more sites (T-score -2.5 or below). In untreated patients, the risk of osteoporotic fracture increases approximately two-fold for each 1.0 SD decrease in T-score. Low bone density is not the only risk factor for fracture; also consider factors such as patient's age, frailty or poor health, risk of falling, risk of injury, previous osteoporotic fracture, family history of osteoporosis, cigarette smoking, low body weight, etc. Not everyone with low bone mineral density has osteoporosis; osteomalacia and other metabolic bone disorders should also be considered. Patients who have osteoporosis should be evaluated for specific diseases and conditions (secondary causes) that may cause or contribute to bone loss. The [place] [employer] (AACE) and National Osteoporosis Foundation (NOF) recommend pharmacologic intervention for all postmenopausal women whose T-score is in this range. The patient should follow a healthful lifestyle (good nutrition with adequate calcium and vitamin D, and appropriate weight-bearing exercise). Follow-Up: Consider a repeat BMD and Vertebral Fracture Assessment (VFA) exam in 2 years or sooner if medically necessary, to reassess this patient's status. Reported by: FAITH on 12/20/2024 2:13:00 PM. Reviewed, dictated and finalized at location A.
--- NOTE | ~2024-12-20 | MM_ITS ---
EXAMINATION: MM screening mohini BI w kyaw HISTORY: Screening TECHNIQUE: Craniocaudal and mediolateral oblique 3-D tomosynthesis images were obtained and synthetic 2-D images were generated. CAD analysis was submitted and interpreted. COMPARISON: 11/28/2013 BREAST PARENCHYMAL COMPOSITION: There are scattered areas of fibroglandular density. FINDINGS: There is no evidence of suspicious mass, calcification, or architectural distortion to suggest malignancy. There has been no suspicious interval change. IMPRESSION: 1. No mammographic evidence of malignancy. Recommend routine screening mammography in one year. BI-RADS Category 2: Benign finding(s) Reviewed, dictated and finalized at location Q. IMPRESSION: 1. No mammographic evidence of malignancy. Recommend routine screening mammogra phy in one year. BI-RADS Category 2: Benign finding(s)
== END 2024-12-20 13:07 | disposition home or self-care (01) ==
LOC: MICIMG 13:06
PROVIDERS: PCP Family Medicine; Visit Provider Nurse Practitioner
DX: Z12.31 Encounter for screening mammogram for malignant neoplasm of breast (principal); M85.88 Other specified disorders of bone density and structure, other site; M81.0 Age-related osteoporosis without current pathological fracture; M85.852 Other specified disorders of bone density and structure, left thigh; M85.851 Other specified disorders of bone density and structure, right thigh
CPT/HCPCS: 77063; 77067; 77080